=== PATIENT | female | born 1960 | race Caucasian/White ===

== ENCOUNTER 2016-10-30 13:42 | Emergency (ER) | payer OTHER ==
[~2016-10-30 13:42] MED LIST: /ESOM40CA PO; ACET500C OR; CETI10TA OR; CETI5CHW OR; CRES20TA OR; LASI20TA OR; POTA20TA2 OR; VICO5TAB OR; VIT D 4000 PO; phentermine PO
[2016-10-30] MEDS ORDERED: METHOCARBAMOL 1,000 MG/10 ML VIAL (J2800) As Ordered ONE (14:18)
--- NOTE | 2016-10-30 14:44 | EDDOCDS ---
Physician Documentation [facility] Name: Taryn Delgadillo Age: 55 yrs Sex: Female : 1960 Arrival Date: 10/30/2016 Time: 13:42 Bed 5 Private MD: TIMBO LONGORIA Disposition: 10/30/16 14:36 Discharged to Home/Self Care. Impression: Chronic pain syndrome. - Condition is Stable. - Discharge Instructions: Back Pain, Adult, Chronic Pain. - Medication Reconciliation, Local Pharmacy Hours form. - Follow up: TMIBO LONGORIA; When: 2 - 3 days; Reason: Continuance of care. - Problem is an ongoing problem. - Symptoms are unchanged. Historical: - Allergies: Aspirin (Upset stomach); Ibuprofen; Latex; Toradolrectal bleeding; - Home Meds: 1. Nexium 40 mg Oral cpDR 1 cap once daily 2. Zyrtec 10 mg Oral cap daily 3. potassium chloride 20 mEq Oral TbER 1 tab once daily 4. Lasix 20 mg Oral tab 1 tab once daily 5. Crestor 20 mg Oral tab 1 tab once daily 6. Vitamin D Oral daily 7. phentermine 37.5 mg oral cap 1 cap once daily 8. prednisone 20 mg Oral tab once daily 9. carisoprodol 350 mg Oral tab every 6 hours 10. oxycodone-acetaminophen 10-325 mg Oral tab 1 tab every 4 hours 11. ondansetron HCl 4 mg Oral tab every 4 hours as needed 12. Vicodin ES 5-325mg Oral as needed - PMHx: Ulcerative Colitis; Celiac disease; Irritable bowel syndrome; - PSHx: ablasion uterine 2009; fibroids removed uterus 12/2009; Rotator Cuff Repair- Right; Cholecystectomy; ERCP; - Social history: Smoking status: Patient states former smoker of tobacco. No barriers to communication noted, The patient speaks fluent Namibian, Speaks appropriately for age. - Family history: Not pertinent. - : The pt / caregiver states he / she is not on anticoagulants. Home medication list is obtained from the patient. - Exposure Risk Screening:: None identified. 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 4 in. (162.56 cm); Pain 10/10; 14:42 BP 126 / 79; Pulse 68; Resp 16; Temp 98.1(O); Pulse Ox 95% on R/A; Pain 9/10; aa3 13:44 Body Mass Index 30.90 (81.65 kg, 162.56 cm) cmb MDM: 14:17 Diazepam 5 mg IM once ordered. ke 14:17 Robaxin 200 mg IM once ordered. ke Administered Medications: 14:26 Not Given (no ride - cant adminn): Diazepam 5 mg IM once pml 14:26 Drug: Robaxin 200 mg [Robaxin 100 mg/mL injection solution (2 mL)] Route: IM; Site: pml left gluteus; 14:43 Follow up: Response: No Adverse Reaction; No significant change. aa3 Signatures: Raghav Dobson, DAY CARE DIRECTOR Lavonne Gardner RN RN pml Letty Giles RN RN aa3 Rosanna Meyers RN RN kc3 MTDD
--- NOTE | 2016-10-30 14:44 | EDDOCDS ---
Nurse's Notes [facility] Name: Taryn Delgadillo Age: 55 yrs Sex: Female : 1960 Arrival Date: 10/30/2016 Time: 13:42 Bed 5 Private MD: TIMBO LONGORIA Diagnosis: Chronic pain syndrome Presentation: 10/30 13:53 Presenting complaint: Patient states: upper back pain x 1 week. Pt reports is 5th trip kc3 to ER in 1 week with relief of symptoms. Pt reports had MRI done yesterday with herniated discs dx. Pt reports sent here by [facility] and joint soso as unable to get in there. Acute neurological deficits are not present. Mechanism of Injury: No Mechanism of Injury. Adult Sepsis Screening: The patient does not have new or worsening altered mentation. Patient's respiratory rate is less than 22. Systolic blood pressure is greater than 100. Patient has a qSOFA score of 0- Negative Sepsis Screen. Suicide/Homicide risk assessment- the patient denies having any suicidal and/or homicidal ideations and does not present with any other emotional, behavioral or mental health complaints. Status: Patient is not a services mgr or dependent. Transition of care: patient was not received from another setting of care. 13:53 Acuity: DWAIN Level 3 kc3 13:53 Method Of Arrival: Walkin/Carried/Asstd kc3 Triage Assessment: 14:02 General: Appears in no apparent distress, comfortable, Behavior is appropriate for age, kc3 cooperative. Pain: Location: back Pain currently is 10 out of 10 on a pain scale. HIV screening NA for this visit Offered previously. Musculoskeletal: Circulation, motion, and sensation intact. 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 Nexium 40 mg Oral cpDR 1 cap once daily 2. Zyrtec 10 mg Oral cap daily 3. potassium chloride 20 mEq Oral TbER 1 tab once daily 4. Lasix 20 mg Oral tab 1 tab once daily 5. Crestor 20 mg Oral tab 1 tab once daily 6. Vitamin D Oral daily 7. phentermine 37.5 mg oral cap 1 cap once daily 8. prednisone 20 mg Oral tab once daily 9. carisoprodol 350 mg Oral tab every 6 hours 10. oxycodone-acetaminophen 10-325 mg Oral tab 1 tab every 4 hours 11. ondansetron HCl 4 mg Oral tab every 4 hours as needed 12. Vicodin ES 5-325mg Oral as needed - PMHx: Ulcerative Colitis; Celiac disease; Irritable bowel syndrome; - PSHx: ablasion uterine 2009; fibroids removed uterus 12/2009; Rotator Cuff Repair- Right; Cholecystectomy; ERCP; - Social history: Smoking status: Patient states former smoker of tobacco. No barriers to communication noted, The patient speaks fluent Russian, Speaks appropriately for age. - Family history: Not pertinent. - : The pt / caregiver states he / she is not on anticoagulants. Home medication list is obtained from the patient. - Exposure Risk Screening:: None identified. Screenin:26 Screening information is obtained from the patient. Fall risk: No risks identified. pml Assistance ADL's: requires no assistance with activities of daily living. Abuse/DV Screen: The patient / caregiver reports he/she is: not in a situation that causes fear, pain or injury. Nutritional screening: No deficits noted. Advance Directives: Currently, there is no health care proxy. home support is adequate. Assessment: 14:26 General: Appears in no apparent distress, comfortable, Behavior is appropriate for age, pml cooperative. Pain: Location: right scapular area, thoracic area and left arm Pain currently is 9 out of 10 on a pain scale. Neurological: Level of Consciousness is awake, alert, Oriented to person, place, time. Cardiovascular: Capillary refill < 3 seconds. Respiratory: Airway is patent Respiratory effort is even, unlabored. Derm: Skin is pink, warm & dry. Musculoskeletal: Circulation, motion, and sensation intact Capillary refill < 3 seconds Range of motion intact in all extremities. 14:42 General: Appears in no apparent distress, comfortable, Behavior is appropriate for age, aa3 cooperative. Pain: Location: left arm and thoracic area and right scapular area Pain currently is 9 out of 10 on a pain scale. Neurological: Level of Consciousness is awake, alert, Oriented to person, place, time. Respiratory: Airway is patent Respiratory effort is even, unlabored. Vital Signs: 13:44 BP 135 / 89; Pulse 77; Resp 18; Temp 98.2(O); Pulse Ox 98% ; Weight 81.65 kg; Height 5 cmb ft. 4 in. (162.56 cm); Pain 10/10; 14:42 BP 126 / 79; Pulse 68; Resp 16; Temp 98.1(O); Pulse Ox 95% on R/A; Pain 9/10; aa3 13:44 Body Mass Index 30.90 (81.65 kg, 162.56 cm) cmb Vitals: 13:44 Log In Time: October 30, 2016 at 13:42. cmb ED Course: 13:43 Patient visited by Sherley Herman. cmb 13:43 Patient moved to Waiting cmb 13:44 TIMBO LONGORIA is Private Physician. cmb 13:45 Patient moved to Pre RCE cmb 13:56 Triage Initiated kc3 14:04 [facility]. ke 14:04 Patient visited by Raghav Dobson FNP. ke 14:04 Patient visited by Raghav Dobson FNP. ke 14:04 Patient moved to 5 sew 14:26 The patient / caregiver is instructed regarding the plan of care and ED course. Patient pml has correct armband on for positive identification. Bed in low position. Call light in reach. 14:26 No IV's were initiated during this patient's visit. No procedures done that require pml assistance. 14:28 Patient visited by Lavonne Ervin RN. pml 14:36 TIMBO LONGORIA is Referral Physician. ke Administered Medications: 14:26 Not Given (no ride - cant adminn): Diazepam 5 mg IM once pml 14:26 Drug: Robaxin 200 mg [Robaxin 100 mg/mL injection solution (2 mL)] Route: IM; Site: pml left gluteus; 14:43 Follow up: Response: No Adverse Reaction; No significant change. aa3 Order Results: There are currently no results for this order. Outcome: 14:36 Discharge ordered by Provider. ke 14:42 Discharge Assessment: Patient awake and alert. Oriented to person, place and time. aa3 Patient verbalized understanding of disposition instructions. Patient has no functional deficits. patient administered narcotics - no. The following High Risk Discharge criteria are identified: None. Discharged to home ambulatory. Condition: good. Discharge instructions given to patient, Instructed on discharge instructions, follow up and referral plans. Demonstrated understanding of instructions, Pt was receptive of discharge instructions/ teaching. No special radiology studies were completed. Property :Personal belongings accompany Pt. 14:43 Patient left the ED. aa3 Signatures: Raghav Dobson, SPRING TESTER Lavonne GardnerRN RN Sherley Kendrick Sarah sew Asselin, AbbyRN RN aa3 Rosanna MeyersRN RN kc3 MTDD
[2016-11-01] MEDS ORDERED: METAL LOCK LOOP XX ONE (08:39)
--- NOTE | 2016-11-01 15:44 | EDDOCDS ---
Physician Documentation [facility] Name: Taryn Delgadillo Age: 55 yrs Sex: Female : 1960 Arrival Date: 10/30/2016 Time: 13:42 Bed 5 Private MD: TIMBO LONGORIA Disposition: 10/30/16 14:36 Discharged to Home/Self Care. Impression: Chronic pain syndrome. - Condition is Stable. - Discharge Instructions: Back Pain, Adult, Chronic Pain. - Medication Reconciliation, Local Pharmacy Hours form. - Follow up: TIMBO LONGORIA; When: 2 - 3 days; Reason: Continuance of care. - Problem is an ongoing problem. - Symptoms are unchanged. Historical: - Allergies: Aspirin (Upset stomach); Ibuprofen; Latex; Toradolrectal bleeding; - Home Meds: 1. Nexium 40 mg Oral cpDR 1 cap once daily 2. Zyrtec 10 mg Oral cap daily 3. potassium chloride 20 mEq Oral TbER 1 tab once daily 4. Lasix 20 mg Oral tab 1 tab once daily 5. Crestor 20 mg Oral tab 1 tab once daily 6. Vitamin D Oral daily 7. phentermine 37.5 mg oral cap 1 cap once daily 8. prednisone 20 mg Oral tab once daily 9. carisoprodol 350 mg Oral tab every 6 hours 10. oxycodone-acetaminophen 10-325 mg Oral tab 1 tab every 4 hours 11. ondansetron HCl 4 mg Oral tab every 4 hours as needed 12. Vicodin ES 5-325mg Oral as needed - PMHx: Ulcerative Colitis; Celiac disease; Irritable bowel syndrome; - PSHx: ablasion uterine 2009; fibroids removed uterus 12/2009; Rotator Cuff Repair- Right; Cholecystectomy; ERCP; - Social history: Smoking status: Patient states former smoker of tobacco. No barriers to communication noted, The patient speaks fluent Georgian, Speaks appropriately for age. - Family history: Not pertinent. - : The pt / caregiver states he / she is not on anticoagulants. Home medication list is obtained from the patient. - Exposure Risk Screening:: None identified. 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 4 in. (162.56 cm); Pain 10/10; 14:42 BP 126 / 79; Pulse 68; Resp 16; Temp 98.1(O); Pulse Ox 95% on R/A; Pain 9/10; aa3 13:44 Body Mass Index 30.90 (81.65 kg, 162.56 cm) cmb MDM: 14:17 Diazepam 5 mg IM once ordered. ke 14:17 Robaxin 200 mg IM once ordered. ke 11/01 08:57 T-Sheet-- Draft Copy was scanned into [employer] and attached to record. lg Administered Medications: 10/30 14:26 Not Given (no ride - cant adminn): Diazepam 5 mg IM once pml 14:26 Drug: Robaxin 200 mg [Robaxin 100 mg/mL injection solution (2 mL)] Route: IM; Site: pml left gluteus; 14:43 Follow up: Response: No Adverse Reaction; No significant change. aa3 Signatures: Brii Feliz Reg Reg lg Elsner, Karl, UTILITIES GROUND WORKER UTILITIES GROUND WORKER Lavonne Ricketts,RN RN pml Letty Giles RN RN aa3 Rosanna Meyers RN RN kc3 The chart was reviewed and I authenticate all verbal orders and agree with the evaluation and treatment provided.Attachments: 11/01 08:57 T-Sheet-- Draft Copy lg Chart Complete MTDD
--- NOTE | 2016-11-01 15:44 | EDDOCDS ---
Physician Documentation [facility] Name: Taryn Delgadillo Age: 55 yrs Sex: Female : 1960 Arrival Date: 10/30/2016 Time: 13:42 Bed 5 Private MD: TIMBO LONGORIA Disposition: 10/30/16 14:36 Discharged to Home/Self Care. Impression: Chronic pain syndrome. - Condition is Stable. - Discharge Instructions: Back Pain, Adult, Chronic Pain. - Medication Reconciliation, Local Pharmacy Hours form. - Follow up: TIMBO LONGORIA; When: 2 - 3 days; Reason: Continuance of care. - Problem is an ongoing problem. - Symptoms are unchanged. Historical: - Allergies: Aspirin (Upset stomach); Ibuprofen; Latex; Toradolrectal bleeding; - Home Meds: 1. Nexium 40 mg Oral cpDR 1 cap once daily 2. Zyrtec 10 mg Oral cap daily 3. potassium chloride 20 mEq Oral TbER 1 tab once daily 4. Lasix 20 mg Oral tab 1 tab once daily 5. Crestor 20 mg Oral tab 1 tab once daily 6. Vitamin D Oral daily 7. phentermine 37.5 mg oral cap 1 cap once daily 8. prednisone 20 mg Oral tab once daily 9. carisoprodol 350 mg Oral tab every 6 hours 10. oxycodone-acetaminophen 10-325 mg Oral tab 1 tab every 4 hours 11. ondansetron HCl 4 mg Oral tab every 4 hours as needed 12. Vicodin ES 5-325mg Oral as needed - PMHx: Ulcerative Colitis; Celiac disease; Irritable bowel syndrome; - PSHx: ablasion uterine 2009; fibroids removed uterus 12/2009; Rotator Cuff Repair- Right; Cholecystectomy; ERCP; - Social history: Smoking status: Patient states former smoker of tobacco. No barriers to communication noted, The patient speaks fluent Danish, Speaks appropriately for age. - Family history: Not pertinent. - : The pt / caregiver states he / she is not on anticoagulants. Home medication list is obtained from the patient. - Exposure Risk Screening:: None identified. 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 4 in. (162.56 cm); Pain 10/10; 14:42 BP 126 / 79; Pulse 68; Resp 16; Temp 98.1(O); Pulse Ox 95% on R/A; Pain 9/10; aa3 13:44 Body Mass Index 30.90 (81.65 kg, 162.56 cm) cmb MDM: 14:17 Diazepam 5 mg IM once ordered. ke 14:17 Robaxin 200 mg IM once ordered. ke 11/01 08:57 T-Sheet-- Draft Copy was scanned into [email or web address] and attached to record. lg Administered Medications: 10/30 14:26 Not Given (no ride - cant adminn): Diazepam 5 mg IM once pml 14:26 Drug: Robaxin 200 mg [Robaxin 100 mg/mL injection solution (2 mL)] Route: IM; Site: pml left gluteus; 14:43 Follow up: Response: No Adverse Reaction; No significant change. aa3 Signatures: Brii Feliz Reg Reg lg Elsner, Karl, CERTIFIED NURSE OPERATING ROOM CERTIFIED NURSE OPERATING ROOM Lavonne Ricketts,RN RN pml Letty Giles RN RN aa3 Rosanna Meyers RN RN kc3 The chart was reviewed and I authenticate all verbal orders and agree with the evaluation and treatment provided.Attachments: 11/01 08:57 T-Sheet-- Draft Copy lg Chart Complete MTDD
--- NOTE | 2016-11-01 15:45 | EDDOCDS ---
Nurse's Notes [facility] Name: Taryn Delgadillo Age: 55 yrs Sex: Female : 1960 Arrival Date: 10/30/2016 Time: 13:42 Bed 5 Private MD: TIMBO LONGORIA Diagnosis: Chronic pain syndrome Presentation: 10/30 13:53 Presenting complaint: Patient states: upper back pain x 1 week. Pt reports is 5th trip kc3 to ER in 1 week with relief of symptoms. Pt reports had MRI done yesterday with herniated discs dx. Pt reports sent here by [facility] and joint robinson as unable to get in there. Acute neurological deficits are not present. Mechanism of Injury: No Mechanism of Injury. Adult Sepsis Screening: The patient does not have new or worsening altered mentation. Patient's respiratory rate is less than 22. Systolic blood pressure is greater than 100. Patient has a qSOFA score of 0- Negative Sepsis Screen. Suicide/Homicide risk assessment- the patient denies having any suicidal and/or homicidal ideations and does not present with any other emotional, behavioral or mental health complaints. 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 Transition of care: patient was not received from another setting of care. 13:53 Acuity: DWAIN Level 3 kc3 13:53 Method Of Arrival: Walkin/Carried/Asstd kc3 Triage Assessment: 14:02 General: Appears in no apparent distress, comfortable, Behavior is appropriate for age, kc3 cooperative. Pain: Location: back Pain currently is 10 out of 10 on a pain scale. HIV screening NA for this visit Offered previously. Musculoskeletal: Circulation, motion, and sensation intact. AT RISK SPECIALIST: 14:02 LMP N/A - Uterine ablation kc3 Historical: - Allergies: Aspirin (Upset stomach); Ibuprofen; Latex; Toradolrectal bleeding; - Home Meds: 1. Nexium 40 mg Oral cpDR 1 cap once daily 2. Zyrtec 10 mg Oral cap daily 3. potassium chloride 20 mEq Oral TbER 1 tab once daily 4. Lasix 20 mg Oral tab 1 tab once daily 5. Crestor 20 mg Oral tab 1 tab once daily 6. Vitamin D Oral daily 7. phentermine 37.5 mg oral cap 1 cap once daily 8. prednisone 20 mg Oral tab once daily 9. carisoprodol 350 mg Oral tab every 6 hours 10. oxycodone-acetaminophen 10-325 mg Oral tab 1 tab every 4 hours 11. ondansetron HCl 4 mg Oral tab every 4 hours as needed 12. Vicodin ES 5-325mg Oral as needed - PMHx: Ulcerative Colitis; Celiac disease; Irritable bowel syndrome; - PSHx: ablasion uterine 2009; fibroids removed uterus 12/2009; Rotator Cuff Repair- Right; Cholecystectomy; ERCP; - Social history: Smoking status: Patient states former smoker of tobacco. No barriers to communication noted, The patient speaks fluent Slovak, Speaks appropriately for age. - Family history: Not pertinent. - : The pt / caregiver states he / she is not on anticoagulants. Home medication list is obtained from the patient. - Exposure Risk Screening:: None identified. Screenin:26 Screening information is obtained from the patient. Fall risk: No risks identified. pml Assistance ADL's: requires no assistance with activities of daily living. Abuse/DV Screen: The patient / caregiver reports he/she is: not in a situation that causes fear, pain or injury. Nutritional screening: No deficits noted. Advance Directives: Currently, there is no health care proxy. home support is adequate. Assessment: 14:26 General: Appears in no apparent distress, comfortable, Behavior is appropriate for age, pml cooperative. Pain: Location: right scapular area, thoracic area and left arm Pain currently is 9 out of 10 on a pain scale. Neurological: Level of Consciousness is awake, alert, Oriented to person, place, time. Cardiovascular: Capillary refill < 3 seconds. Respiratory: Airway is patent Respiratory effort is even, unlabored. Derm: Skin is pink, warm & dry. Musculoskeletal: Circulation, motion, and sensation intact Capillary refill < 3 seconds Range of motion intact in all extremities. 14:42 General: Appears in no apparent distress, comfortable, Behavior is appropriate for age, aa3 cooperative. Pain: Location: left arm and thoracic area and right scapular area Pain currently is 9 out of 10 on a pain scale. Neurological: Level of Consciousness is awake, alert, Oriented to person, place, time. Respiratory: Airway is patent Respiratory effort is even, unlabored. Vital Signs: 13:44 BP 135 / 89; Pulse 77; Resp 18; Temp 98.2(O); Pulse Ox 98% ; Weight 81.65 kg; Height 5 cmb ft. 4 in. (162.56 cm); Pain 10/10; 14:42 BP 126 / 79; Pulse 68; Resp 16; Temp 98.1(O); Pulse Ox 95% on R/A; Pain 9/10; aa3 13:44 Body Mass Index 30.90 (81.65 kg, 162.56 cm) cmb Vitals: 13:44 Log In Time: October 30, 2016 at 13:42. cmb ED Course: 13:43 Patient visited by Sherley Herman. cmb 13:43 Patient moved to Waiting cmb 13:44 TIMBO LONGORIA is Private Physician. cmb 13:45 Patient moved to Pre RCE cmb 13:56 Triage Initiated kc3 14:04 [facility]. ke 14:04 Patient visited by Raghav Dobson FNP. ke 14:04 Patient visited by Raghav Dobson FNP. ke 14:04 Patient moved to 5 sew 14:26 The patient / caregiver is instructed regarding the plan of care and ED course. Patient pml has correct armband on for positive identification. Bed in low position. Call light in reach. 14:26 No IV's were initiated during this patient's visit. No procedures done that require pml assistance. 14:28 Patient visited by Lavonne Ervin RN. pml 14:36 TIMBO LONGORIA is Referral Physician. ke 11/01 08:57 T-Sheet-- Draft Copy was scanned into [employer] and attached to record. lg Administered Medications: 10/30 14:26 Not Given (no ride - cant adminn): Diazepam 5 mg IM once pml 14:26 Drug: Robaxin 200 mg [Robaxin 100 mg/mL injection solution (2 mL)] Route: IM; Site: pml left gluteus; 14:43 Follow up: Response: No Adverse Reaction; No significant change. aa3 Order Results: There are currently no results for this order. Outcome: 14:36 Discharge ordered by Provider. ke 14:42 Discharge Assessment: Patient awake and alert. Oriented to person, place and time. aa3 Patient verbalized understanding of disposition instructions. Patient has no functional deficits. patient administered narcotics - no. The following High Risk Discharge criteria are identified: None. Discharged to home ambulatory. Condition: good. Discharge instructions given to patient, Instructed on discharge instructions, follow up and referral plans. Demonstrated understanding of instructions, Pt was receptive of discharge instructions/ teaching. No special radiology studies were completed. Property :Personal belongings accompany Pt. 14:43 Patient left the ED. aa3 Signatures: Brii Feliz, Reg Reg lg Raghav Dobson, ANIMAL CARE SUPERVISOR ANIMAL CARE SUPERVISORLavonne Espitia,RN RN Sherley Kendrick Sarah sew Asselin, AbbyRN RN aa3 Rosanna MeyersRN RN kc3 Chart Complete MTDD
== END 2016-10-30 14:43 | disposition home or self-care (01) ==
LOC: M ED 13:42
DX: G89.29 Other chronic pain (principal); M54.9 Dorsalgia, unspecified; K90.0 Celiac disease; K58.9 Irritable bowel syndrome, unspecified; Z87.891 Personal history of nicotine dependence; Z79.899 Other long term (current) drug therapy; Z88.6 Allergy status to analgesic agent; Z91.040 Latex allergy status
CPT/HCPCS: 96372; 99283; J2800; J3360

== ENCOUNTER → 2016-11-05 | Outpatient (CLI) | payer MEDICAID, OTHER ==
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
== END ==
LOC: M PAIN 13:00
PROVIDERS: ATTEND Anesthesiology
DX: G89.29 Other chronic pain (principal); M50.123 Cervical disc disorder at C6-C7 level with radiculopathy; M50.13 Cervical disc disorder with radiculopathy, cervicothoracic region; M51.14 Intervertebral disc disorders with radiculopathy, thoracic region; I10 Essential (primary) hypertension; E11.9 Type 2 diabetes mellitus without complications; G47.30 Sleep apnea, unspecified; K21.9 Gastro-esophageal reflux disease without esophagitis; K90.0 Celiac disease; K52.9 Noninfective gastroenteritis and colitis, unspecified; K75.81 Nonalcoholic steatohepatitis (NASH); G43.909 Migraine, unspecified, not intractable, without status migrainosus; E78.00 Pure hypercholesterolemia, unspecified; Z88.6 Allergy status to analgesic agent; Z91.040 Latex allergy status; Z88.8 Allergy status to other drugs, medicaments and biological substances; L50.2 Urticaria due to cold and heat; Z79.891 Long term (current) use of opiate analgesic; Z79.899 Other long term (current) drug therapy; Z87.820 Personal history of traumatic brain injury

== ENCOUNTER → 2016-11-08 | Outpatient (CLI) | payer MEDICAID, OTHER ==
[~2016-11-08] MED LIST changes: +ISOVUE-M 300 61% 15ML VIAL (Q9967) As Ordered ONE; +LIDOCAINE 1% SDV INJ 30 ML VIAL As Ordered ONE; +diazePAM 5 MG TAB As Ordered ONE; +methylPREDNISolone SUSP 40 MG/ML (DEPO-medrol) VIAL (J1030) As Ordered ONE; +oxyCODONE 5MG TAB As Ordered ONE
--- NOTE | 2016-11-08 16:50 | REP ---
Partial cervical spine series: Two views. History: Cervical epidural steroid injection for pain. 8 seconds of fluoroscopy time is reported. Findings: A sequence of two fluoroscopically obtained last image hold spot radiographs of the cervicothoracic junction document needle position and contrast injection associated with cervical epidural injection procedure. Signed by Kirill Jones MD 11/08/2016 07:45 P
--- NOTE | 2016-11-16 00:32 | ECWPNPC ---
PATIENT NAME: PADILLA NGUYEN : 1960 GENDER: FEMALE VISIT DATE: 11/08/2016 DISCHARGE DATE: 11/08/16 1552 VISIT LOCKED DATE TIME: PHYSICIAN: XIOMARA ORDONEZ RESOURCE: XIOMARA ORDONEZ REASON FOR APPOINTMENT 1. PREETI HISTORY OF PRESENT ILLNESS HISTORY OF PRESENT ILLNESS: PAIN THE PATIENT DESCRIBES THE PAIN... FALL RISK SCREENING: SCREENING :NO FALLS IN THE PAST YEAR CURRENT MEDICATIONS TAKING NEXIUM 40 MG CAPSULE DELAYED RELEASE 1 CAPSULE ORALLY ONCE A DAY, NOTES: 11/08/16 1000 TAKING LASIX 20 MG TABLET 1 TABLET ORALLY ONCE A DAY, NOTES: 11/08/16 1000 TAKING ZYRTEC ALLERGY 10 MG TABLET 1 TABLET ORALLY ONCE A DAY, NOTES: 11/08/16 1000 TAKING POTASSIUM CHLORIDE TYE ER 20 MEQ TABLET EXTENDED RELEASE 1 TABLET WITH FOOD ORALLY ONCE A DAY, NOTES: 11/04/16 TAKING VITAMIN D 2000 UNIT TABLET 1 TABLET ORALLY ONCE A DAY, NOTES: 11/05/16 TAKING CRESTOR 20 MG TABLET 1 TABLET ORALLY ONCE A DAY, NOTES: 1 WEEK TAKING PHENTERMINE HCL 37.5 MG TABLET 1 TABLET ORALLY ONCE A DAY, NOTES: 11/08/16 1000 TAKING OXYCODONE-ACETAMINOPHEN 10-325 MG TABLET 1 TABLET NEEDED ORALLY EVERY 4 HRS NEEDED, NOTES: 11/08/16 1130 TAKING SOMA 350 MG TABLET 1 TABLET NEEDED ORALLY FOUR TIMES A DAY, NOTES: 11/07/16 2100 NOT-TAKING VICODIN 5-300 MG TABLET 1 TABLET NEEDED ORALLY EVERY 4 HRS NEEDED WHEN NOT ON OXYCODONE MEDICATION LIST REVIEWED AND RECONCILED WITH THE PATIENT PAST MEDICAL HISTORY HYPERTENSION DIABETES HEAD INJURY 35 YRS AGO LIGIA NO CPAP GERD CELIAC/COLITIS MIGRAINES HIGH CHOLESTEROL BETTENCOURT DISEASE (FATTY LIVER) BONE ON BONE IN BOTH THUMBS ALLERGIES ASPIRIN: SEVERE STOMACH: ALLERGY IBUPROFEN: SEVERE STOMACH: ALLERGY LATEX (FOR ALLERGY USE ONLY): HIVES: ALLERGY KETOROLAC TROMETHAMINE: RECTYAL BLEEDING: CONTRAINDICATION COLD: HIVES, RED, SWELLING: ALLERGY SURGICAL HISTORY LEFT KNEE SURGERY 1982 RIGHT KNEE SURGERY 2002 GALLBLADDER ERCP D&C AND TUBALIGATION UTERINE ABLATION RIGHT SHOULDER- ROTATOR CUFF X2 SOCIAL HISTORY GENERAL: TOBACCO USE ARE YOU A:NONSMOKER LEARNING BARRIERS / SPECIAL NEEDS ORIENTED TO PLAN OF CARE: PATIENT, PAIN MANAGEMENT PATIENT, ORIENTED TO PLAN OF CARE: PATIENT, PAIN MANAGEMENT PATIENT. NEW PATIENT PAIN DIARY TODAY'S VISITNOTES FROM 0-10, WHAT LEVEL IS YOUR PAIN TODAY?0 PAIN CLINIC PFS, CLERGY, PUBLIC HEALTH REFERRALS PFS REFERRAL NEEDED?NO CLERGY REFERRAL NEEDED?NO PUBLIC HEALTH REFERRAL NEEDED?NO WAS THE PROVIDER NOTIFIED OF ANY PERTINENT INFO?NO PFS REFERRAL NEEDED?NO CLERGY REFERRAL NEEDED?NO PUBLIC HEALTH REFERRAL NEEDED?NO WAS THE PROVIDER NOTIFIED OF ANY PERTINENT INFO?NO REVIEW OF SYSTEMS CONSTITUTIONAL: ANY CHANGE IN YOUR MEDICAL CONDITION? NO . CHILLS NO . FEVER NO . INFECTION: DO YOU HAVE NEW INFECTIONS? NO . DO YOU HAVE HISTORY OF MRSA? NO . MUSCULOSKELETAL: ANY NEW PATTERNS OF PAIN OR NUMBNESS? NO . GASTROENTEROLOGY: ANY NEW CHANGE IN BOWEL CONTROL? NO . GENITOURINARY: ANY NEW CHANGE IN BLADDER CONTROL? NO . IS THERE A CHANCE YOU COULD BE ? NO . HEMATOLOGY/LYMPH: DO YOU TAKE ANY BLOOD THINNERS? (FOR EXAMPLE- COUMADIN, PLAVIX, AGGRENOX, PLATEL, PRADAXA, OR XARELTO) NO . WHEN WAS YOUR LAST DOSE? DATE: TIME: . NEUROLOGY: HAVE YOU FALLEN IN THE PAST 6 MONTHS? NO . ANY NEW EXTREMITY NUMBNESS OR WEAKNESS? NO . CARDIOLOGY: DO YOU HAVE A PACEMAKER OR DEFIBRILLATOR? NO . RESPIRATORY: HAVE YOU BEEN SICK IN THE PAST WEEK? NO . FEVER NO . FLU LIKE SYMPTOMS? NO . COUGH NO . INTEGUMENTARY: DO YOU HAVE ANY RASHES OR OPEN SORES? NO . ALLERGIC/IMMUNO: ARE YOU ALLERGIC TO SHELLFISH OR IV DYE? NO . ANY NEW ALLERGIES? NO . PSYCHIATRIC: DO YOU HAVE THOUGHTS OF HURTING YOURSELF OR SOMEONE ELSE? NO . ARE YOU ABUSED, NEGLECTED, OR IN AN UNSAFE ENVIRONMENT? NO . ENDOCRINOLOGY: ARE YOU DIABETIC? NO . OTHER: DO YOU NEED ANY PRESCRIPTIONS? YES . IF YES, PLEASE LIST: OXYCODONE 15 MG . ANY NEW PROBLEMS WITH YOUR MEDICATIONS? NO . WHEN DID YOU LAST EAT? 0300 . WHEN DID YOU LAST DRINK? 1000 . WHAT DID YOU LAST DRINK? WATER . NAME OF PERSON DRIVING YOU HOME? GENNA MASSEY . DO YOU HAVE ANY OTHER QUESTIONS OR CONCERNS NO . REVIEWED BY: PROVIDER: . VITAL SIGNS WT 185 LBS, HT 63", BMI 32.77 INDEX, BP 134/84 MM HG, HR 80 /MIN, RR 16 /MIN, TEMP 96.6 F, OXYGEN SAT % 96, NA INITIALS TL 1329, REVIEWED BY: LS. ASSESSMENTS CERVICAL DISC DISORDER AT C6-C7 LEVEL WITH RADICULOPATHY - M50.123 (PRIMARY) PROCEDURES PN CERVICAL EPIDURAL PRE PROCEDURE DIAGNOSIS CERVICAL RADICULOPATHY CERVICAL SPINAL STENOSIS POST PROCEDURE DIAGNOSIS CERVICAL RADICULOPATHY CERVICAL SPINAL STENOSIS PROCEDURE CERVICAL EPIDURAL STEROID INJECTION UNDER FLUOROSCOPIC GUIDANCE SURGEON DR. XIOMARA ORDONEZ SUPERVISOR SEWING DEPARTMENT NONE ANESTHESIA LOCAL PRE PROCEDURE NOTE THE PATIENT HAS A HISTORY OF CHRONIC CERVICAL PAIN. I EVALUATE THE PATIENT AND REVIEWED THE CHART. I WENT OVER THE RISKS, ALTERNATIVES, AND BENEFITS ASSOCIATED WITH THIS PROCEDURE. THE PATIENT WOULD LIKE TO PROCEED AND GIVE CONSENT TO PERFORMED THE PROCEDURE. THE PATIENT DENIES UNEXPLAINABLE WEIGHT LOSS, FEVER, CHILLS, OR NEW CHANGES IN URINARY OR BOWEL CONTROL DESCRIPTION OF PROCEDURE THE PATIENT WAS BROUGHT TO THE PROCEDURE ROOM AND PLACED IN THE PRONE POSITION. THE CERVICOTHORACIC AREA WAS CLEANED WITH BETADINE SOLUTION AND DRAPED ASEPTICALLY. THE PROCEDURE WAS DONE UNDER STERILE CONDITIONS. I CHECKED LATERALITY AND THE LEVEL WHERE THE PROCEDURE WAS GOING TO BE PERFORMED WITH THE PATIENT AND THE SUPPORTING STAFF AT THE MOMENT OF THE TIME OUT IN THE PROCEDURE ROOM. UNDER FLUOROSCOPIC GUIDANCE, THE TARGET WAS SELECTED AT THE INTERLAMINAR LEVEL OF C7-T1. LIDOCAINE WAS USED TO NUMB THE SKIN AND THE SUBCUTANEOUS TISSUE BELOW IT. EPIDURAL TUOHY NEEDLE 17-GAUGE WAS ADVANCED UNDER FLUOROSCOPIC GUIDANCE AND FOLLOWING PATIENT FEEDBACK UNTIL THE EPIDURAL SPACE WAS REACHED 6 CM DEEP INTO THE SKIN BY THE LOSS OF RESISTANCE TECHNIQUE. ISOVUE M DYE 30%, 0.25 ML, WAS INJECTED SHOWING ADEQUATE SPREAD OF THE DYE. THEN, A SOLUTION OF 3 ML OF NORMAL SALINE WITH DEPO-MEDROL 60 MG WAS INJECTED SLOWLY FOLLOWING PATIENT FEEDBACK. THERE WAS NO EVIDENCE OF BLOOD, PARESTHESIA OR CEREBROSPINAL FLUID DURING THE PROCEDURE. THE PATIENT WAS SENT TO THE RECOVERY ROOM. THE PATIENT WAS MOVING THE EXTREMITIES AND DOING WELL. THERE WAS NO COMPLICATION DURING THE PROCEDURE. FLUOROSCOPY TIME WAS 8 SECONDS POST PROCEDURE NOTE THE PATIENT WILL BE SEEN IN A FOLLOW UP IN THE NEXT FEW WEEKS. INSTRUCTIONS WERE GIVEN, QUESTIONS WERE ANSWERED, AND THE PATIENT EXPRESSED UNDERSTANDING AND AGREES WITH THE PLAN. IMALACHI, DOCUMENTED THE ABOVE INFORMATION ACTING A SCRIBE FOR DR. ORDONEZ. I, DR. ORDONEZ, HAVE REVIEWED THE ABOVE DOCUMENT, SCRIBED BY MALACHI VERNON, AND I VERIFY THAT IT IS ACCURATE DIAGNOSTIC IMAGING [facility] FLUORO GUIDE SPINE INJECTION (PAIN)[id number] PROCEDURE CODES 42626 CERVICAL/THORACIC W/ IMAGING 6045F RADXPS IN END [id number] PXD DISPOSITION & COMMUNICATION FOLLOW UP 3 WEEKS ELECTRONICALLY SIGNED BY XIOMARA ORDONEZ MD ON 11/14/2016 AT 11:55 AM EDT DISCLAIMER : THIS IS A VISIT SUMMARY EXTRACTED FROM THE [email or web address] CHART. IT IS NOT A COPY OF THE [email or web address] PROGRESS NOTE. MTDD
== END ==
LOC: M PAIN 13:00
PROVIDERS: ATTEND Anesthesiology
DX: G89.29 Other chronic pain (principal); M50.123 Cervical disc disorder at C6-C7 level with radiculopathy; I10 Essential (primary) hypertension; E11.9 Type 2 diabetes mellitus without complications; K21.9 Gastro-esophageal reflux disease without esophagitis; K90.0 Celiac disease; K52.9 Noninfective gastroenteritis and colitis, unspecified; K75.81 Nonalcoholic steatohepatitis (NASH); G43.909 Migraine, unspecified, not intractable, without status migrainosus; E78.00 Pure hypercholesterolemia, unspecified; G47.30 Sleep apnea, unspecified; Z88.6 Allergy status to analgesic agent; Z91.040 Latex allergy status; Z88.8 Allergy status to other drugs, medicaments and biological substances; L50.2 Urticaria due to cold and heat; Z79.891 Long term (current) use of opiate analgesic; Z79.899 Other long term (current) drug therapy; Z87.820 Personal history of traumatic brain injury
CPT/HCPCS: 62321; J1030; Q9967

== ENCOUNTER → 2016-11-30 | Outpatient (CLI) | payer MEDICAID, OTHER ==
[~2016-11-30] MED LIST changes: -ISOVUE-M 300 61% 15ML VIAL (Q9967) As Ordered ONE; -LIDOCAINE 1% SDV INJ 30 ML VIAL As Ordered ONE; -diazePAM 5 MG TAB As Ordered ONE; -methylPREDNISolone SUSP 40 MG/ML (DEPO-medrol) VIAL (J1030) As Ordered ONE; -oxyCODONE 5MG TAB As Ordered ONE
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
== END ==
LOC: M PAIN 13:20
PROVIDERS: ATTEND Anesthesiology
DX: Z09 Encounter for follow-up examination after completed treatment for conditions other than malignant neoplasm (principal); G89.29 Other chronic pain; M54.2 Cervicalgia; M43.12 Spondylolisthesis, cervical region; M79.1 Myalgia; I10 Essential (primary) hypertension; G47.33 Obstructive sleep apnea (adult) (pediatric); K21.9 Gastro-esophageal reflux disease without esophagitis; G43.909 Migraine, unspecified, not intractable, without status migrainosus; E78.00 Pure hypercholesterolemia, unspecified; K76.0 Fatty (change of) liver, not elsewhere classified; Z79.891 Long term (current) use of opiate analgesic; Z79.899 Other long term (current) drug therapy; Z88.6 Allergy status to analgesic agent; Z91.040 Latex allergy status; Z88.8 Allergy status to other drugs, medicaments and biological substances

== ENCOUNTER → 2016-12-28 | Outpatient (REF) ==
--- NOTE | 2016-12-28 11:37 | REP ---
PARTIAL LUMBAR SPINE, THREE VIEWS: HISTORY: Degenerative disc disease. There is no acute fracture or subluxation. The L3-4 through L5-S1 intervertebral discs are decreased in height. Vacuum phenomenon is present at the L4-5 level. These findings are consistent with disc degeneration. Osteophytes are present on L4 and 5. IMPRESSION: Degenerative change as described above. Signed by Diaz Isabel MD 12/28/2016 11:40 A
== END ==
LOC: M SMT 10:52
PROVIDERS: ATTEND Internal Medicine
DX: Z02.71 Encounter for disability determination (principal)

== ENCOUNTER → 2017-01-05 | Outpatient (CLI) | payer OTHER, MEDICAID ==
[~2017-01-05] MED LIST changes: +BUPIVACAINE HCL 0.25% 10 ML VIAL As Ordered ONE; +BUPIVACAINE HCL 0.25% 30 ML VIAL As Ordered ONE; +TRIAMCINOLONE ACETONIDE SUSP 40 MG/ML VIAL (J3301) As Ordered ONE; +ePHEDrine SULFATE 25 MG/5 ML(5MG/ML) SYRINGE As Ordered ONE
--- NOTE | 2017-01-09 23:36 | ECWPNPC ---
PATIENT NAME: PADILLA NGUYEN : 1960 GENDER: FEMALE VISIT DATE: 01/05/2017 DISCHARGE DATE: 01/05/17949 VISIT LOCKED DATE TIME: PHYSICIAN: XIOMARA ORDONEZ RESOURCE: XIOMARA ORDONEZ REASON FOR APPOINTMENT 1. TPI HISTORY OF PRESENT ILLNESS HISTORY OF PRESENT ILLNESS: PAIN THE PATIENT DESCRIBES THE PAIN... FALL RISK SCREENING: SCREENING :NO FALLS IN THE PAST YEAR CURRENT MEDICATIONS TAKING NEXIUM 40 MG CAPSULE DELAYED RELEASE 1 CAPSULE ORALLY ONCE A DAY, NOTES: 01-05-17699 TAKING LASIX 20 MG TABLET 1 TABLET ORALLY ONCE A DAY, NOTES: 01-05-17699 TAKING ZYRTEC ALLERGY 10 MG TABLET 1 TABLET ORALLY ONCE A DAY, NOTES: 01-05-17699 TAKING POTASSIUM CHLORIDE TYE ER 20 MEQ TABLET EXTENDED RELEASE 1 TABLET WITH FOOD ORALLY ONCE A DAY, NOTES: NONE RECENT TAKING VITAMIN D 2000 UNIT TABLET 1 TABLET ORALLY ONCE A DAY, NOTES: NONE TAKING CRESTOR 20 MG TABLET 1 TABLET ORALLY ONCE A DAY, NOTES: 01-05-17699 TAKING PHENTERMINE HCL 37.5 MG TABLET 1 TABLET ORALLY ONCE A DAY, NOTES: NONE NOT-TAKING VICODIN 5-300 MG TABLET 1 TABLET NEEDED ORALLY EVERY 4 HRS NEEDED WHEN NOT ON OXYCODONE DISCONTINUED OXYCODONE-ACETAMINOPHEN 10-325 MG TABLET 1 TABLET NEEDED ORALLY EVERY 4 HRS NEEDED DISCONTINUED SOMA 350 MG TABLET 1 TABLET NEEDED ORALLY DAILY MEDICATION LIST REVIEWED AND RECONCILED WITH THE PATIENT PAST MEDICAL HISTORY HYPERTENSION DIABETES HEAD INJURY 35 YRS AGO LIGIA NO CPAP GERD CELIAC/COLITIS MIGRAINES HIGH CHOLESTEROL BETTENCOURT DISEASE (FATTY LIVER) BONE ON BONE IN BOTH THUMBS ALLERGIES ASPIRIN: SEVERE STOMACH: ALLERGY IBUPROFEN: SEVERE STOMACH: ALLERGY LATEX (FOR ALLERGY USE ONLY): HIVES: ALLERGY KETOROLAC TROMETHAMINE: RECTYAL BLEEDING: CONTRAINDICATION COLD: HIVES, RED, SWELLING: ALLERGY REVIEW OF SYSTEMS CONSTITUTIONAL: ANY CHANGE IN YOUR MEDICAL CONDITION? NO . CHILLS NO . FEVER NO . INFECTION: DO YOU HAVE NEW INFECTIONS? NO . DO YOU HAVE HISTORY OF MRSA? NO . MUSCULOSKELETAL: ANY NEW PATTERNS OF PAIN OR NUMBNESS? YES, RIGHT SIDE OF NECK GOING DOWN RIGHT ARM . GASTROENTEROLOGY: ANY NEW CHANGE IN BOWEL CONTROL? NO . GENITOURINARY: ANY NEW CHANGE IN BLADDER CONTROL? NO . IS THERE A CHANCE YOU COULD BE ? NO . HEMATOLOGY/LYMPH: DO YOU TAKE ANY BLOOD THINNERS? (FOR EXAMPLE- COUMADIN, PLAVIX, AGGRENOX, PLATEL, PRADAXA, OR XARELTO) NO . WHEN WAS YOUR LAST DOSE? DATE: TIME: . NEUROLOGY: HAVE YOU FALLEN IN THE PAST 6 MONTHS? NO . ANY NEW EXTREMITY NUMBNESS OR WEAKNESS? NO . CARDIOLOGY: DO YOU HAVE A PACEMAKER OR DEFIBRILLATOR? NO . RESPIRATORY: HAVE YOU BEEN SICK IN THE PAST WEEK? NO . FEVER NO . FLU LIKE SYMPTOMS? NO . COUGH NO . INTEGUMENTARY: DO YOU HAVE ANY RASHES OR OPEN SORES? NO . ALLERGIC/IMMUNO: ARE YOU ALLERGIC TO SHELLFISH OR IV DYE? NO . ANY NEW ALLERGIES? NO . PSYCHIATRIC: DO YOU HAVE THOUGHTS OF HURTING YOURSELF OR SOMEONE ELSE? NO . ARE YOU ABUSED, NEGLECTED, OR IN AN UNSAFE ENVIRONMENT? NO . ENDOCRINOLOGY: ARE YOU DIABETIC? NO . OTHER: DO YOU NEED ANY PRESCRIPTIONS? NO . IF YES, PLEASE LIST: ____ . ANY NEW PROBLEMS WITH YOUR MEDICATIONS? NO . WHEN DID YOU LAST EAT? 01-04-17 7PM . WHEN DID YOU LAST DRINK? 01-05-17 0700 . WHAT DID YOU LAST DRINK? WATER . NAME OF PERSON DRIVING YOU HOME? GRACE LOZANO . DO YOU HAVE ANY OTHER QUESTIONS OR CONCERNS NO . REVIEWED BY: PROVIDER: . VITAL SIGNS WT 182 LBS, HT 63", BMI 32.24 INDEX, BP 129/86 MM HG, HR 82 /MIN, RR 16 /MIN, TEMP 97.6 F, OXYGEN SAT % 95%, NA INITIALS SC 08:51, REVIEWED BY: CM. ASSESSMENTS MYALGIA - M79.1 (PRIMARY) PROCEDURES PN TRIGGER POINT INJECTION WITH STEROIDS PRE PROCEDURE DIAGNOSIS 1. MYALGIA 2. PAIN AT BILATERAL NECK AREA, BILATERAL SHOULDER AREA, AND BILATERAL THORACIC AREA POST PROCEDURE DIAGNOSIS 1. MYALGIA 2. PAIN AT BILATERAL NECK AREA, BILATERAL SHOULDER AREA, AND BILATERAL THORACIC AREA PROCEDURE TRIGGER POINT INJECTION AT BILATERAL NECK AREA, BILATERAL SHOULDER AREA, AND BILATERAL THORACIC AREA SURGEON DR. XIOMARA ORDONEZ MANAGER BIOSTATISTICS NONE ANESTHESIA LOCAL PRE PROCEDURE NOTE THE PATIENT HAS A HISTORY OF CHRONIC PAIN AT THE RIGHT AND LEFT NECK AREA, RIGHT AND LEFT SHOULDER AREA, AND RIGHT AND LEFT THORACIC AREA. I EVALUATE THE PATIENT AND REVIEWED THE CHART. THERE IS EVIDENCE OF BANDS OF TISSUE WITH RESTRICTION OF MOVEMENT AND PRESENCE OF TRIGGER POINT AT THE AFFECTED AREA. I WENT OVER THE RISKS, ALTERNATIVES, AND BENEFITS ASSOCIATED WITH THIS PROCEDURE. THE PATIENT WOULD LIKE TO PROCEED AND GIVE CONSENT TO PERFORMED THE PROCEDURE. THE PATIENT DENIES UNEXPLAINABLE WEIGHT LOSS, FEVER, CHILLS, OR NEW CHANGES IN URINARY OR BOWEL CONTROL DESCRIPTION OF PROCEDURE THE PATIENT WAS BROUGHT TO THE PROCEDURE ROOM AND PLACED IN THE SITTING POSITION. THE AREA WAS CLEANED WITH ALCOHOL. THE PROCEDURE WAS DONE USING ASEPTIC STERILE TECHNIQUE. I CHECKED LATERALITY AND THE LEVEL WHERE THE PROCEDURE WAS GOING TO BE PERFORMED WITH THE PATIENT AND THE SUPPORTING STAFF AT THE MOMENT OF THE TIME OUT IN THE PROCEDURE ROOM. USING A 25-GAUGE NEEDLE, TRIGGER POINTS WERE INJECTED AT THE RIGHT AND LEFT NECK AREA, RIGHT AND LEFT SHOULDER AREA AND RIGHT AND LEFT THORACIC AREA WITH A TOTAL OF 40 ML OF BUPIVACAINE 0.25% AND KENALOG 40 MG. THERE WAS NO EVIDENCE OF BLOOD, PARESTHESIA OR CEREBROSPINAL FLUID DURING THE PROCEDURE. THE PATIENT WAS SENT TO THE RECOVERY ROOM. THE PATIENT WAS MOVING THE EXTREMITIES AND DOING WELL. THERE WAS NO COMPLICATION DURING THE PROCEDURE POST PROCEDURE NOTE THE PATIENT WILL BE SEEN IN A FOLLOW UP IN THE NEXT FEW WEEKS. INSTRUCTIONS WERE GIVEN, QUESTIONS WERE ANSWERED, AND THE PATIENT EXPRESSED UNDERSTANDING AND AGREES WITH THE PLAN. I, MALACHI VERNON, DOCUMENTED THE ABOVE INFORMATION ACTING A SCRIBE FOR DR. ORDONEZ. I HAVE REVIEWED THE ABOVE DOCUMENT, WRITTEN BY MALACHI CORTEZ AND I VERIFY THAT IT IS ACCURATE PROCEDURE CODES 65606 INJECT TRIGGER POINTS 3/> DISPOSITION & COMMUNICATION FOLLOW UP 3 WEEKS ELECTRONICALLY SIGNED BY XIOMARA ORDONEZ MD ON 01/09/2017 AT 04:57 PM EDT DISCLAIMER : THIS IS A VISIT SUMMARY EXTRACTED FROM THE [employer] CHART. IT IS NOT A COPY OF THE [employer] PROGRESS NOTE. LIGIA
== END ==
LOC: M PAIN 08:40
PROVIDERS: ATTEND Anesthesiology
DX: G89.29 Other chronic pain (principal); M54.2 Cervicalgia; M79.1 Myalgia; M25.552 Pain in left hip; M25.511 Pain in right shoulder; I10 Essential (primary) hypertension; E11.9 Type 2 diabetes mellitus without complications; G47.33 Obstructive sleep apnea (adult) (pediatric); K21.9 Gastro-esophageal reflux disease without esophagitis; E78.00 Pure hypercholesterolemia, unspecified; K76.0 Fatty (change of) liver, not elsewhere classified; G43.909 Migraine, unspecified, not intractable, without status migrainosus; K90.0 Celiac disease; Z88.6 Allergy status to analgesic agent; Z91.040 Latex allergy status; Z88.8 Allergy status to other drugs, medicaments and biological substances; Z79.899 Other long term (current) drug therapy
CPT/HCPCS: 20553; J3301

== ENCOUNTER → 2017-02-10 | Outpatient (CLI) | payer OTHER, MEDICAID ==
[~2017-02-10] MED LIST changes: -BUPIVACAINE HCL 0.25% 10 ML VIAL As Ordered ONE; -BUPIVACAINE HCL 0.25% 30 ML VIAL As Ordered ONE; -TRIAMCINOLONE ACETONIDE SUSP 40 MG/ML VIAL (J3301) As Ordered ONE; -ePHEDrine SULFATE 25 MG/5 ML(5MG/ML) SYRINGE As Ordered ONE
--- NOTE | 2017-02-11 00:03 | ECWPNPC ---
PATIENT NAME: PADILLA NGUYEN : 1960 GENDER: FEMALE VISIT DATE: 02/10/2017 DISCHARGE DATE: 02/10/17947 VISIT LOCKED DATE TIME: PHYSICIAN: JANET LOWERY RESOURCE: JANET LOWERY REASON FOR APPOINTMENT 1. POST TPI HISTORY OF PRESENT ILLNESS HISTORY OF PRESENT ILLNESS: 56 Y/O FEMALE HERE FOR POST PROCEDURE.HAD TPI ON 01-05-17.REPORTS MINIMAL IMPROVEMENT FOR SHORT TIME.COMPLAINING OF GENERALIZED JOINT PAIN.PREETI IN PAST HAS BEEN HELPFUL.CURRENTLY BEING EVALUATED FOR ABNORMAL LIVER FUNCTION STUDIES WITH PLANNED LIVER BIOPSY.RATING PAIN VAS 7/10.REPORTING CREPITUS AND ACHING MAINLY RIGHT NECK AND UPPER BACK.PAIN IS AGGREVATED BY USE OF ARMS OR ROJM NECK. PAIN THE PATIENT DESCRIBES THE PAIN... FALL RISK SCREENING: SCREENING :NO FALLS IN THE PAST YEAR CURRENT MEDICATIONS TAKING NEXIUM 40 MG CAPSULE DELAYED RELEASE 1 CAPSULE ORALLY ONCE A DAY TAKING LASIX 20 MG TABLET 1 TABLET ORALLY ONCE A DAY TAKING ZYRTEC ALLERGY 10 MG TABLET 1 TABLET ORALLY ONCE A DAY TAKING POTASSIUM CHLORIDE TYE ER 20 MEQ TABLET EXTENDED RELEASE 1 TABLET WITH FOOD ORALLY ONCE A DAY TAKING VITAMIN D 2000 UNIT TABLET 1 TABLET ORALLY ONCE A DAY TAKING CRESTOR 20 MG TABLET 1 TABLET ORALLY ONCE A DAY TAKING PHENTERMINE HCL 37.5 MG TABLET 1 TABLET ORALLY ONCE A DAY TAKING MOVANTIK 25 MG TABLET 1 TABLET IN THE MORNING ORALLY ONCE A DAY NOT-TAKING VICODIN 5-300 MG TABLET 1 TABLET NEEDED ORALLY EVERY 4 HRS NEEDED WHEN NOT ON OXYCODONE MEDICATION LIST REVIEWED AND RECONCILED WITH THE PATIENT PAST MEDICAL HISTORY HYPERTENSION DIABETES HEAD INJURY 35 YRS AGO LIGIA NO CPAP GERD CELIAC/COLITIS MIGRAINES HIGH CHOLESTEROL BETTENCOURT DISEASE (FATTY LIVER) BONE ON BONE IN BOTH THUMBS ALLERGIES ASPIRIN: SEVERE STOMACH: ALLERGY IBUPROFEN: SEVERE STOMACH: ALLERGY LATEX (FOR ALLERGY USE ONLY): HIVES: ALLERGY KETOROLAC TROMETHAMINE: RECTYAL BLEEDING: CONTRAINDICATION COLD: HIVES, RED, SWELLING: ALLERGY REVIEW OF SYSTEMS CONSTITUTIONAL: ANY CHANGE IN YOUR MEDICAL CONDITION? YES, INCREASED LFT&QUOT;S AND LIVER IS HARD . CHILLS NO . FEVER NO . INFECTION: DO YOU HAVE NEW INFECTIONS? NO . DO YOU HAVE HISTORY OF MRSA? NO . MUSCULOSKELETAL: ANY NEW PATTERNS OF PAIN OR NUMBNESS? NO . GASTROENTEROLOGY: ANY NEW CHANGE IN BOWEL CONTROL? NO . GENITOURINARY: ANY NEW CHANGE IN BLADDER CONTROL? NO . IS THERE A CHANCE YOU COULD BE ? NO . HEMATOLOGY/LYMPH: DO YOU TAKE ANY BLOOD THINNERS? (FOR EXAMPLE- COUMADIN, PLAVIX, AGGRENOX, PLATEL, PRADAXA, OR XARELTO) NO . WHEN WAS YOUR LAST DOSE? DATE: TIME: . NEUROLOGY: HAVE YOU FALLEN IN THE PAST 6 MONTHS? YES . ANY NEW EXTREMITY NUMBNESS OR WEAKNESS? NO . CARDIOLOGY: DO YOU HAVE A PACEMAKER OR DEFIBRILLATOR? NO . RESPIRATORY: HAVE YOU BEEN SICK IN THE PAST WEEK? NO . FEVER NO . FLU LIKE SYMPTOMS? NO . COUGH NO . INTEGUMENTARY: DO YOU HAVE ANY RASHES OR OPEN SORES? YES, REDNESS AND SWELLING OF FACE SINCE MOWING THE LAWN LAST NIGHT . ALLERGIC/IMMUNO: ARE YOU ALLERGIC TO SHELLFISH OR IV DYE? NO . ANY NEW ALLERGIES? NO . PSYCHIATRIC: DO YOU HAVE THOUGHTS OF HURTING YOURSELF OR SOMEONE ELSE? NO . ARE YOU ABUSED, NEGLECTED, OR IN AN UNSAFE ENVIRONMENT? NO . ENDOCRINOLOGY: ARE YOU DIABETIC? YES . OTHER: DO YOU NEED ANY PRESCRIPTIONS? NO . IF YES, PLEASE LIST: ____ . ANY NEW PROBLEMS WITH YOUR MEDICATIONS? NO . WHEN DID YOU LAST EAT? ____ . WHEN DID YOU LAST DRINK? ____ . WHAT DID YOU LAST DRINK? ____ . NAME OF PERSON DRIVING YOU HOME? ____ . DO YOU HAVE ANY OTHER QUESTIONS OR CONCERNS NO . REVIEWED BY: PROVIDER: JANET NAVARRO . VITAL SIGNS WT 178.4 LBS, HT 63", BMI 31.60 INDEX, BP 124/73 MM HG, HR 85 /MIN, RR 18 /MIN, TEMP 98.4 F, OXYGEN SAT % 96%, REVIEWED BY: CS (DONE AT 0907). EXAMINATION GENERAL EXAMINATION: GENERAL APPEARANCE:NO ACUTE DISTRESS. PSYCHAFFECT NORMAL, GOOD EYE CONTACT. LUNGS:LUNG LAKE ARE CLEAR TO AUSCULTATION BILATERALLY. GOOD MOVEMENT OF AIR. HEART:S1, S2 IN A REGULAR RATE AND RHYTHM. NO SIGNIFICANT MURMURS, RUBS OR GALLOPS NOTED. DIAGNOSTIC DATA-MRI [id number]-REVIEWED. CERVICAL SPINE/NECK: RANGE OF MOTION OF NECK:FULL WITH SOME DISCOMFORT. SENSATIONS:NORMAL BILATERALLY. VERTEBRAL SPINE TENDERNESS:POSITIVE OVER CERVICAL AXIS. TRAPEZIUS TENDERNESS:PRESENT ON RIGHT > LEFT SIDE. 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 PATIENT DOES NOT WANT ANY INFORMATION REGARDING PREETI SINCE SHE HAS HAD THIS IN THE PAST. PROCEDURE CODES FA211 ESTABILISHED PATIENT [facility] CHARGE DISPOSITION & COMMUNICATION FOLLOW UP 2WK POST (REASON: REQUEST PREETI ) ELECTRONICALLY SIGNED BY RAMON PURCELL ON 02/10/2017 AT 01:34 PM EDT DISCLAIMER : THIS IS A VISIT SUMMARY EXTRACTED FROM THE [employer] CHART. IT IS NOT A COPY OF THE [employer] PROGRESS NOTE. LIGIA
== END ==
LOC: M PAIN 08:40
PROVIDERS: ATTEND Nurse Practitioner Family
DX: G89.29 Other chronic pain (principal); M79.1 Myalgia; M43.02 Spondylolysis, cervical region; M50.20 Other cervical disc displacement, unspecified cervical region; I10 Essential (primary) hypertension; E11.9 Type 2 diabetes mellitus without complications; G47.33 Obstructive sleep apnea (adult) (pediatric); K21.9 Gastro-esophageal reflux disease without esophagitis; G43.909 Migraine, unspecified, not intractable, without status migrainosus; E78.00 Pure hypercholesterolemia, unspecified; K76.0 Fatty (change of) liver, not elsewhere classified; K52.9 Noninfective gastroenteritis and colitis, unspecified; K90.0 Celiac disease; Z88.6 Allergy status to analgesic agent; Z91.040 Latex allergy status; Z88.8 Allergy status to other drugs, medicaments and biological substances; Z79.899 Other long term (current) drug therapy

== ENCOUNTER → 2017-02-14 | Outpatient (CLI) | payer OTHER ==
[~2017-02-14] MED LIST changes: +LIDOCAINE 1% MDV 20ML VIAL As Ordered ONE
--- NOTE | 2017-02-14 14:59 | REP ---
ULTRASOUND GUIDED LIVER BIOPSY: The procedure was performed under the direct supervision of Dr. Nuñez. The risks and benefits of the procedure were explained to the patient and informed consent was obtained. The left lobe of the liver was localized using ultrasound guidance. The skin was prepped and draped in a sterile fashion. 1% xylocaine was used as a local anesthetic. Using ultrasound guidance a 19/20 gauge co-axial needle biopsy system was inserted and advanced into the liver. Five core biopsy samples were obtained and sent to the lab. The patient tolerated the procedure well and there were no immediate complications. After the appropriate amount of monitored convalescence the patient was discharged from the department. Reviewed by MERT Ashton 02/14/2017 05:08 PEdited and Signed by Sachin Nuñez MD 02/14/2017 05:18 P
== END | disposition home or self-care (01) ==
LOC: M RADPRO 08:31
PROVIDERS: ATTEND Internal Medicine Gastroenterology
DX: K75.81 Nonalcoholic steatohepatitis (NASH) (principal); K90.0 Celiac disease; K21.9 Gastro-esophageal reflux disease without esophagitis; E66.9 Obesity, unspecified; K62.5 Hemorrhage of anus and rectum; M19.90 Unspecified osteoarthritis, unspecified site; J45.909 Unspecified asthma, uncomplicated; R07.9 Chest pain, unspecified; G89.29 Other chronic pain; E11.9 Type 2 diabetes mellitus without complications; K44.9 Diaphragmatic hernia without obstruction or gangrene; E78.00 Pure hypercholesterolemia, unspecified; K58.9 Irritable bowel syndrome, unspecified; G47.30 Sleep apnea, unspecified; Z79.899 Other long term (current) drug therapy; Z88.8 Allergy status to other drugs, medicaments and biological substances; Z91.040 Latex allergy status; Z87.891 Personal history of nicotine dependence

== ENCOUNTER → 2018-02-20 | Outpatient (REF) | payer OTHER ==
[2018-02-20 16:45] LABS: BASO % 0.5 % (0.0-1.0); HEMATOCRIT 42.7 % (36.0-47.0); IMMATURE GRANULOCYTE % 0.3 % (0-3.0); LYMPH % 26.5 % (24.0-44.0); MEAN CORPUSCULAR HGB CONC 32.8 g/dl (32.0-36.5); MEAN CORPUSCULAR VOLUME 88.4 fl (80.0-96.0); MONO # 0.6 10^3/uL (0.0-0.8); MONO % 7.4 % (0.0-5.0); NEUTROPHILS # 4.8 10^3/uL (1.8-7.7); NEUTROPHILS % 65.3 % (36.0-66.0); PLATELET COUNT, AUTOMATED 249 10^3/uL (150-450); RED BLOOD COUNT 4.83 10^6/uL (4.00-5.40); WHITE BLOOD COUNT 7.4 10^3/uL (4.0-10.0)
[2018-02-20 16:57] LABS: C REACTIVE PROTEIN QUANTITATIV 0.47 MG/DL (0.00-0.30)
[2018-02-20 17:09] LABS: ERYTHROCYTE SEDIMENTATION RATE 30 mm/hr (0-30)
== END ==
LOC: M LABDRAW1 15:10
DX: Z47.89 Encounter for other orthopedic aftercare (principal)

== ENCOUNTER → 2018-07-10 | Outpatient (CLI) | payer OTHER, MEDICAID | LOC: M PAIN 15:00 | DX: M79.18 Myalgia, other site (principal); M43.02 Spondylolysis, cervical region; M50.20 Other cervical disc displacement, unspecified cervical region; E11.9 Type 2 diabetes mellitus without complications; I10 Essential (primary) hypertension; G47.33 Obstructive sleep apnea (adult) (pediatric); G43.909 Migraine, unspecified, not intractable, without status migrainosus; E78.00 Pure hypercholesterolemia, unspecified; L50.2 Urticaria due to cold and heat; Z79.899 Other long term (current) drug therapy; Z88.6 Allergy status to analgesic agent; Z88.8 Allergy status to other drugs, medicaments and biological substances; Z91.040 Latex allergy status; Z87.19 Personal history of other diseases of the digestive system; Z87.820 Personal history of traumatic brain injury | CPT/HCPCS: G0463 ==

== ENCOUNTER → 2018-08-24 | Outpatient (CLI) | payer OTHER, MEDICAID ==
[~2018-08-24] MED LIST changes: +ISOVUE-M 300 61% 15ML VIAL (Q9967) As Ordered ONE; -LIDOCAINE 1% MDV 20ML VIAL As Ordered ONE; +LIDOCAINE 1% SDV INJ 30 ML VIAL As Ordered ONE; +diazePAM 5 MG TAB As Ordered ONE; +methylPREDNISolone SUSP 40 MG/ML (DEPO-medrol) VIAL (J1030) As Ordered ONE; +oxyCODONE 5MG TAB As Ordered ONE
--- NOTE | 2018-08-24 14:08 | REP ---
Cervical spine series: Limited study two views: History: Injection procedure for pain. 9 seconds of fluoroscopy time is reported. Findings: A sequence of two last image hold fluoroscopically obtained spot radiographs of the cervicothoracic junction document needle position and contrast injection associated with cervical epidural injection procedure. Electronically Signed by Kirill Jones MD 08/24/2018 03:11 P
--- NOTE | 2018-09-10 23:46 | ECWPNPC ---
PATIENT NAME: PADILLA NGUYEN : 1960 GENDER: FEMALE VISIT DATE: 08/24/2018 DISCHARGE DATE: 08/24/18 1148 VISIT LOCKED DATE TIME: PHYSICIAN: XIOMARA ORDONEZ MD RESOURCE: XIOMARA ORDONEZ MD REASON FOR APPOINTMENT 1. PREETI HISTORY OF PRESENT ILLNESS HISTORY OF PRESENT ILLNESS: PAIN THE PATIENT DESCRIBES THE PAIN... FALL RISK SCREENING: SCREENING :NO FALLS IN THE PAST YEAR CURRENT MEDICATIONS TAKING OXYCODONE HCL 15 MG TABLET 1 TABLET ORALLY BEFORE BEDTIME, NOTES: WEEKS AGO TAKING TRULICITY 0.75 MG/0.5ML SOLUTION PEN-INJECTOR SUBCUTANEOUS WEEKLY, NOTES: 2 WEEKS AGO TAKING JANUVIA 25 MG TABLET ORALLY DAILY, NOTES: 08/23/18929 UNSURE OF DOSE TAKING NEXIUM 40 MG CAPSULE DELAYED RELEASE 1 CAPSULE ORALLY ONCE A DAY, NOTES: 744 TAKING LASIX 20 MG TABLET 1 TABLET ORALLY ONCE A DAY, NOTES: 744 TAKING ZYRTEC ALLERGY 10 MG TABLET 1 TABLET ORALLY ONCE A DAY, NOTES: 744 TAKING POTASSIUM CHLORIDE TYE ER 20 MEQ TABLET EXTENDED RELEASE 1 TABLET WITH FOOD ORALLY ONCE A DAY, NOTES: 744 TAKING VITAMIN D 2000 UNIT TABLET 1 TABLET ORALLY ONCE A DAY, NOTES: 08/23/18929 TAKING CRESTOR 20 MG TABLET 1 TABLET ORALLY ONCE A DAY, NOTES: 08/23/18929 TAKING PHENTERMINE HCL 37.5 MG TABLET 1 TABLET ORALLY ONCE A DAY, NOTES: 08/23/18929 TAKING MOVANTIK 25 MG TABLET 1 TABLET IN THE MORNING ORALLY ONCE A DAY, NOTES: 08/23/18929 NOT-TAKING VICODIN 5-300 MG TABLET 1 TABLET NEEDED ORALLY EVERY 4 HRS NEEDED WHEN NOT ON OXYCODONE MEDICATION LIST REVIEWED AND RECONCILED WITH THE PATIENT PAST MEDICAL HISTORY HYPERTENSION DIABETES HEAD INJURY 35 YRS AGO ILGIA NO CPAP GERD CELIAC/COLITIS MIGRAINES HIGH CHOLESTEROL BETTENCOURT DISEASE (FATTY LIVER) BONE ON BONE IN BOTH THUMBS ALLERGIES ASPIRIN: SEVERE STOMACH: ALLERGY IBUPROFEN: SEVERE STOMACH: ALLERGY LATEX (FOR ALLERGY USE ONLY): HIVES: ALLERGY KETOROLAC TROMETHAMINE: RECTYAL BLEEDING: CONTRAINDICATION COLD: HIVES, RED, SWELLING: ALLERGY SURGICAL HISTORY LEFT KNEE SURGERY 1982 RIGHT KNEE SURGERY 2002 GALLBLADDER ERCP D&C AND TUBALIGATION UTERINE ABLATION RIGHT SHOULDER- ROTATOR CUFF X2 RIGHT KNEE SURGERY 02/2018 FAMILY HISTORY FATHER: ALIVE, DIAGNOSED WITH OTHER MOTHER: ALIVE, DIAGNOSED WITH DIABETES, HEART DISEASE, OTHER SIBLINGS: ALIVE 2 BROTHER(S) , 3 SISTER(S) . 2 SON(S) - HEALTHY. SIBLINGS - LUPUS, RAFATHER - CHRON'S. SOCIAL HISTORY GENERAL: TOBACCO USE ARE YOU A:NONSMOKER RECREATIONAL DRUG USE DRUG USE?NO LEARNING BARRIERS / SPECIAL NEEDS ORIENTED TO PLAN OF CARE: PATIENT, PAIN MANAGEMENT PATIENT, ORIENTED TO PLAN OF CARE: PATIENT, PAIN MANAGEMENT PATIENT. NEW PATIENT PAIN DIARY TODAY'S VISITNOTES FROM 0-10, WHAT LEVEL IS YOUR PAIN TODAY?0 PAIN CLINIC PFS, CLERGY, PUBLIC HEALTH REFERRALS PFS REFERRAL NEEDED?NO CLERGY REFERRAL NEEDED?NO PUBLIC HEALTH REFERRAL NEEDED?NO WAS THE PROVIDER NOTIFIED OF ANY PERTINENT INFO?NO HAS THE PATIENT BEEN EDUCATED REGARDING HIS/HER PLAN OF CARE?YES HAS THE PATIENT BEEN EDUCATED REGARDING PAIN, THE RISK FOR PAIN, THE IMPORTANCE OF EFFECTIVE PAIN MANAGEMENT, AND THE PAIN ASSESSMENT PROCESS?YES ADVANCE DIRECTIVE ADVANCE DIRECTIVE DISCUSSED WITH PATIENT:YES POA - KEILA YOUNG (SON) REVIEWED WITH PATIENT 07/10/18 1529 JSREVIEWED WITH PATIENT 0930 JS. HOSPITALIZATION/MAJOR DIAGNOSTIC PROCEDURE NO HOSPITALIZATION HISTORY. REVIEW OF SYSTEMS REVIEWED BY: PROVIDER: . CONSTITUTIONAL: ANY CHANGE IN YOUR MEDICAL CONDITION? NO . CHILLS NO . FEVER NO . INFECTION: DO YOU HAVE NEW INFECTIONS? NO . DO YOU HAVE HISTORY OF MRSA? NO . MUSCULOSKELETAL: ANY NEW PATTERNS OF PAIN OR NUMBNESS? YES, STATES PAIN AND NUMBNESS HAVE RETURNED TO LEFT ARM . GASTROENTEROLOGY: ANY NEW CHANGE IN BOWEL CONTROL? NO . GENITOURINARY: ANY NEW CHANGE IN BLADDER CONTROL? NO . IS THERE A CHANCE YOU COULD BE ? NO . HEMATOLOGY/LYMPH: DO YOU TAKE ANY BLOOD THINNERS? (FOR EXAMPLE- COUMADIN, PLAVIX, AGGRENOX, PLATEL, PRADAXA, OR XARELTO) NO . WHEN WAS YOUR LAST DOSE? DATE: TIME: . NEUROLOGY: HAVE YOU FALLEN IN THE PAST 6 MONTHS? YES, STATES FALL PRIOR TO LAST VISIT, DISCUSSED AT LAST VISIT . ANY NEW EXTREMITY NUMBNESS OR WEAKNESS? YES, STATES WEAKNESS TO LEFT ARM . CARDIOLOGY: DO YOU HAVE A PACEMAKER OR DEFIBRILLATOR? NO . RESPIRATORY: HAVE YOU BEEN SICK IN THE PAST WEEK? NO . FEVER NO . FLU LIKE SYMPTOMS? NO . COUGH NO . INTEGUMENTARY: DO YOU HAVE ANY RASHES OR OPEN SORES? NO . ALLERGIC/IMMUNO: ARE YOU ALLERGIC TO SHELLFISH OR IV DYE? NO . ANY NEW ALLERGIES? NO . PSYCHIATRIC: DO YOU HAVE THOUGHTS OF HURTING YOURSELF OR SOMEONE ELSE? NO . ARE YOU ABUSED, NEGLECTED, OR IN AN UNSAFE ENVIRONMENT? NO . ENDOCRINOLOGY: ARE YOU DIABETIC? YES . OTHER: DO YOU NEED ANY PRESCRIPTIONS? NO . IF YES, PLEASE LIST: ____ . ANY NEW PROBLEMS WITH YOUR MEDICATIONS? NO . WHEN DID YOU LAST EAT? ____08/23/181999 . WHEN DID YOU LAST DRINK? ____08/24/18 0745 . WHAT DID YOU LAST DRINK? ____WATER . NAME OF PERSON DRIVING YOU HOME? ____BONNIE YOUNG () . DO YOU HAVE ANY OTHER QUESTIONS OR CONCERNS NO . VITAL SIGNS WT 175.8 LBS, HT 63", BMI 31.14 INDEX, BP 132/79 MM HG, HR 84 /MIN, RR 16 /MIN, TEMP 96.7 F, OXYGEN SAT % 94%, BLOOD GLUCOSE LEVEL 107 THIS AM, SAFE IN ENV? (Y/N) YES, NA INITIALS PR 08:59, REVIEWED BY: CHARANJIT. ASSESSMENTS CERVICAL DISC DISORDER WITH RADICULOPATHY OF CERVICAL REGION - M50.10 (PRIMARY) PROCEDURES PN CERVICAL EPIDURAL PRE PROCEDURE DIAGNOSIS CERVICAL DISC DISORDER WITH RADICULOPATHY POST PROCEDURE DIAGNOSIS CERVICAL DISC DISORDER WITH RADICULOPATHY PROCEDURE CERVICAL EPIDURAL STEROID INJECTION UNDER FLUOROSCOPIC GUIDANCE SURGEON DR. XIOMARA ORDONEZ OCCUPATIONAL THERAPY ASSISTANT NONE ANESTHESIA LOCAL PRE PROCEDURE NOTE THE PATIENT HAS A HISTORY OF CHRONIC CERVICAL PAIN. I EVALUATE THE PATIENT AND REVIEWED THE CHART. I WENT OVER THE RISKS, ALTERNATIVES, AND BENEFITS ASSOCIATED WITH THIS PROCEDURE. THE PATIENT WOULD LIKE TO PROCEED AND GIVE CONSENT TO PERFORMED THE PROCEDURE. THE PATIENT DENIES UNEXPLAINABLE WEIGHT LOSS, FEVER, CHILLS, OR NEW CHANGES IN URINARY OR BOWEL CONTROL DESCRIPTION OF PROCEDURE THE PATIENT WAS BROUGHT TO THE PROCEDURE ROOM AND PLACED IN THE PRONE POSITION. THE CERVICOTHORACIC AREA WAS CLEANED WITH BETADINE SOLUTION AND DRAPED ASEPTICALLY. THE PROCEDURE WAS DONE UNDER STERILE CONDITIONS. I CHECKED LATERALITY AND THE LEVEL WHERE THE PROCEDURE WAS GOING TO BE PERFORMED WITH THE PATIENT AND THE SUPPORTING STAFF AT THE MOMENT OF THE TIME OUT IN THE PROCEDURE ROOM. UNDER FLUOROSCOPIC GUIDANCE, THE TARGET WAS SELECTED AT THE INTERLAMINAR LEVEL OF C7-T1. LIDOCAINE WAS USED TO NUMB THE SKIN AND THE SUBCUTANEOUS TISSUE BELOW IT. EPIDURAL TUOHY NEEDLE 17-GAUGE WAS ADVANCED UNDER FLUOROSCOPIC GUIDANCE AND FOLLOWING PATIENT FEEDBACK UNTIL THE EPIDURAL SPACE WAS REACHED 6 CM DEEP INTO THE SKIN BY THE LOSS OF RESISTANCE TECHNIQUE. ISOVUE M DYE 30%, 0.25 ML, WAS INJECTED SHOWING ADEQUATE SPREAD OF THE DYE. THEN, A SOLUTION OF 3 ML OF NORMAL SALINE WITH DEPO-MEDROL 60 MG WAS INJECTED SLOWLY FOLLOWING PATIENT FEEDBACK. THERE WAS NO EVIDENCE OF BLOOD, PARESTHESIA OR CEREBROSPINAL FLUID DURING THE PROCEDURE. THE PATIENT WAS SENT TO THE RECOVERY ROOM. THE PATIENT WAS MOVING THE EXTREMITIES AND DOING WELL. THERE WAS NO COMPLICATION DURING THE PROCEDURE. FLUOROSCOPY TIME WAS 9 SECONDS POST PROCEDURE NOTE THE PATIENT WILL BE SEEN IN A FOLLOW UP IN THE NEXT FEW WEEKS. INSTRUCTIONS WERE GIVEN, QUESTIONS WERE ANSWERED, AND THE PATIENT EXPRESSED UNDERSTANDING AND AGREES WITH THE PLAN. I, BAILEE CHURCH, DOCUMENTED THE ABOVE INFORMATION ACTING A SCRIBE FOR DR. ORDONEZ. I HAVE REVIEWED THE ABOVE DOCUMENT, WRITTEN BY BAILEE CORTEZ AND I VERIFY THAT IT IS ACCURATE. DIAGNOSTIC IMAGING [facility] FLUORO GUIDE SPINE INJECTION (PAIN)[id number] PROCEDURE CODES 6045F RADXPS IN END [id number] PXD [id number] CERVICAL/THORACIC W/ IMAGING DISPOSITION & COMMUNICATION FOLLOW UP 3 WEEKS ELECTRONICALLY SIGNED BY XIOMARA ORDONEZ MD, MD ON 09/10/2018 AT 02:26 PM EST DISCLAIMER : THIS IS A VISIT SUMMARY EXTRACTED FROM THE [employer] CHART. IT IS NOT A COPY OF THE [employer] PROGRESS NOTE. MTDD
== END ==
LOC: M PAIN 08:45
PROVIDERS: ATTEND Anesthesiology
DX: G89.29 Other chronic pain (principal); M50.10 Cervical disc disorder with radiculopathy, unspecified cervical region; I10 Essential (primary) hypertension; E11.9 Type 2 diabetes mellitus without complications; G47.33 Obstructive sleep apnea (adult) (pediatric); G43.909 Migraine, unspecified, not intractable, without status migrainosus; E78.00 Pure hypercholesterolemia, unspecified; Z79.899 Other long term (current) drug therapy; Z88.6 Allergy status to analgesic agent; Z88.8 Allergy status to other drugs, medicaments and biological substances; Z91.09 Other allergy status, other than to drugs and biological substances; Z91.040 Latex allergy status; Z87.820 Personal history of traumatic brain injury; Z87.19 Personal history of other diseases of the digestive system
CPT/HCPCS: 62321; J1030; Q9967

== ENCOUNTER → 2018-11-08 | Outpatient (CLI) | payer OTHER ==
[~2018-11-08] MED LIST changes: -ISOVUE-M 300 61% 15ML VIAL (Q9967) As Ordered ONE; -LIDOCAINE 1% SDV INJ 30 ML VIAL As Ordered ONE; -diazePAM 5 MG TAB As Ordered ONE; -methylPREDNISolone SUSP 40 MG/ML (DEPO-medrol) VIAL (J1030) As Ordered ONE; -oxyCODONE 5MG TAB As Ordered ONE
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
== END ==
LOC: M PAIN 14:30
PROVIDERS: ATTEND Nurse Practitioner Family
DX: M43.02 Spondylolysis, cervical region (principal); M50.20 Other cervical disc displacement, unspecified cervical region; I10 Essential (primary) hypertension; E11.9 Type 2 diabetes mellitus without complications; G47.33 Obstructive sleep apnea (adult) (pediatric); K21.9 Gastro-esophageal reflux disease without esophagitis; G43.909 Migraine, unspecified, not intractable, without status migrainosus; E78.00 Pure hypercholesterolemia, unspecified; K76.0 Fatty (change of) liver, not elsewhere classified; L50.2 Urticaria due to cold and heat; Z79.899 Other long term (current) drug therapy; Z88.1 Allergy status to other antibiotic agents; Z88.5 Allergy status to narcotic agent; Z88.6 Allergy status to analgesic agent; Z88.8 Allergy status to other drugs, medicaments and biological substances; Z91.018 Allergy to other foods; Z91.040 Latex allergy status; Z87.891 Personal history of nicotine dependence

== ENCOUNTER → 2019-02-08 | Outpatient (CLI) | payer OTHER ==
[~2019-02-08] MED LIST changes: -/ESOM40CA PO; +NEXI1CAP3 PO
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
== END ==
LOC: M PAIN 13:30
PROVIDERS: ATTEND Nurse Practitioner Family
DX: M50.20 Other cervical disc displacement, unspecified cervical region (principal); Z79.899 Other long term (current) drug therapy; Z87.891 Personal history of nicotine dependence; Z88.8 Allergy status to other drugs, medicaments and biological substances; Z88.5 Allergy status to narcotic agent; Z91.040 Latex allergy status; Z91.018 Allergy to other foods

== ENCOUNTER → 2019-08-03 | Outpatient (CLI) | payer OTHER ==
[2019-08-03 17:00] LABS: CALCIUM LEVEL 8.8 MG/DL (8.5-10.1); CREATININE FOR GFR 1.15 MG/DL (0.55-1.30); GLOMERULAR FILTRATION RATE 51.6 (>51); POTASSIUM SERUM 3.9 MEQ/L (3.5-5.1)
--- NOTE | 2019-08-04 01:02 | ECGEPIP ---
[facility] Test Date: 2019-08-03 Pat Name: PADILLA NGUYEN Department: Room: - Gender: Female Special Assets Officer: : 1960 Requested By: Dariusz Pina PA-C Order Number: [id number] Reading MD: Brock Sharma Measurements Intervals [place] Rate: 72 P: 21 WY: 182 QRS: 43 QRSD: 93 T: 10 QT: 364 QTc: 400 Interpretive Statements SINUS RHYTHM NO PRIOR TRACING IN THE SYSTEM Electronically Signed on 08-04-2019 1:01:46 EST by Brock Sharma
== END ==
LOC: M LAB 15:36
DX: Z79.899 Other long term (current) drug therapy (principal)

== ENCOUNTER → 2020-02-15 | Outpatient (REF) | payer OTHER ==
[2020-02-15 16:12] LABS: CREATININE, URINE < 13.0 MG/DL; MALB URINE SIEMENS < 5.0 MG/L
== END ==
LOC: M LAB REF 15:00
PROVIDERS: ATTEND Nurse Practitioner Family
DX: E11.65 Type 2 diabetes mellitus with hyperglycemia (principal)

== ENCOUNTER → 2020-07-10 | Outpatient (CLI) | payer OTHER ==
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
== END ==
LOC: M PAIN 10:15
PROVIDERS: ATTEND Nurse Practitioner Family
DX: M43.02 Spondylolysis, cervical region (principal); M50.20 Other cervical disc displacement, unspecified cervical region; M79.11 Myalgia of mastication muscle; I10 Essential (primary) hypertension; E11.9 Type 2 diabetes mellitus without complications; G47.33 Obstructive sleep apnea (adult) (pediatric); E78.00 Pure hypercholesterolemia, unspecified; Z87.891 Personal history of nicotine dependence; Z79.84 Long term (current) use of oral hypoglycemic drugs; Z79.899 Other long term (current) drug therapy; Z88.6 Allergy status to analgesic agent; Z88.5 Allergy status to narcotic agent; Z88.1 Allergy status to other antibiotic agents; Z88.8 Allergy status to other drugs, medicaments and biological substances; Z91.018 Allergy to other foods

== ENCOUNTER → 2020-08-26 | Outpatient (CLI) | payer OTHER ==
[~2020-08-26] MED LIST changes: +ISOVUE-300 61% 50ML VIAL As Ordered ONE; +LIDOCAINE 1% MDV 20ML VIAL As Ordered ONE
--- NOTE | 2020-08-26 11:25 | REP ---
INDICATION: LEFT HIP PAIN, BURSITIS. COMPARISON: None. TECHNIQUE: Axial CT images are performed of the left hip following arthrogram procedure. Sagittal and coronal reconstruction images are performed. FINDINGS: There is no evidence of acute fracture or dislocation. There are findings compatible with fraying and partial tearing at the anterior superior corner of the labrum. 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 There is mild diffuse chondromalacia at the hip joint. There is mild acetabular spurring. There is mild subchondral cystic change in the superior acetabulum anteriorly. No definite joint bodies are seen. There are mild tendinous calcifications along the greater trochanter of the proximal left femur. There are also mild tendinous calcifications in the left common hamstring tendon. Otherwise the soft tissues surrounding the left hip are grossly unremarkable. Within the pelvis note is made of multiple diverticula of the sigmoid colon without evidence of acute diverticulitis. IMPRESSION: Fraying and partial tearing at the anterior superior corner of the labrum. 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 Mild arthritic changes of the left hip as discussed above. Mild diffuse chondromalacia. Mild tendinous calcifications along the greater trochanter of the proximal left femur and in the left common hamstring tendon. <Electronically signed by Sachin Nuñez > 08/26/20 [id number]
--- NOTE | 2020-08-26 16:53 | REP ---
INDICATION: LEFT HIP PAIN, BURSITIS. COMPARISON: None TECHNIQUE: The procedure was performed by MERT Tovar, under the direct supervision of Dr. Nuñez. The benefits and risks of the procedure were explained to the patient, and an informed consent was obtained. Directly prior to the start of the procedure, a formal time-out was completed in the procedure room. The left femoral neck joint space was localized using fluoroscopic guidance. The skin was prepped and draped in a sterile fashion. Approximately 5 mL of 1% Lidocaine 10 mg/ml was used as a local anesthetic. Using fluoroscopic guidance, a #22 gauge spinal needle was inserted and advanced into the left femoral neck joint space. Approximately 12 mL of Isovue 300 was injected to verify placement and for postprocedural imaging. The needle was removed and the patient was taken to CT for post procedural imaging. FINDINGS: The patient tolerated the procedure well and there were no immediate complications. IMPRESSION: Fluoroscopic guided left femoral neck arthrogram.. 0.1 minutes of fluoroscopy time was utilized for this procedure. Some fluoroscopic images are performed with last image hold technology. These images require no additional radiation. <Electronically signed by Lorraine Delgado > 08/26/20 1017 <Electronically signed by Sachin Nuñez > 08/26/20 [id number]
== END ==
LOC: M RADPRO 08:38
PROVIDERS: ATTEND Physician Assistant
DX: M70.62 Trochanteric bursitis, left hip (principal); M24.859 Other specific joint derangements of unspecified hip, not elsewhere classified; M16.12 Unilateral primary osteoarthritis, left hip; Z88.1 Allergy status to other antibiotic agents; Z88.5 Allergy status to narcotic agent; Z88.6 Allergy status to analgesic agent; Z88.8 Allergy status to other drugs, medicaments and biological substances; Z91.018 Allergy to other foods
CPT/HCPCS: 27093; 73701; 77002; Q9967

== ENCOUNTER → 2020-11-13 | Outpatient (CLI) | payer OTHER ==
[~2020-11-13] MED LIST changes: -ISOVUE-300 61% 50ML VIAL As Ordered ONE; -LIDOCAINE 1% MDV 20ML VIAL As Ordered ONE
== END ==
LOC: M LABSMTC 11:29
PROVIDERS: ATTEND Anesthesiology
DX: Z01.812 Encounter for preprocedural laboratory examination (principal); Z20.822 Contact with and (suspected) exposure to COVID-19

== ENCOUNTER → 2020-11-18 | Outpatient (CLI) | payer OTHER ==
[~2020-11-18] MED LIST changes: +ISOVUE-M 300 61% 15ML VIAL As Ordered ONE; +LIDOCAINE 1% SDV 30ML VIAL As Ordered ONE; +diazePAM 5MG TABLET As Ordered ONE; +methylPREDNISolone SUSP 40MG/ML 1ML VIAL (DEPO MEDROL) As Ordered ONE; +oxyCODONE 5MG TAB As Ordered ONE
--- NOTE | 2020-11-18 10:33 | REP ---
INDICATION: CERVICAL EPIDURAL. COMPARISON: None. TECHNIQUE: Three views. 25.2 seconds of fluoroscopy time is reported. FINDINGS: A sequence of 3 last image hold fluoroscopically obtained spot radiograph(s) of the cervical spine document(s) needle position(s) and contrast injection associated with injection procedure. IMPRESSION: Procedural imaging. <Electronically signed by Félix Jones > 11/18/20 1027
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
== END ==
LOC: M PAIN 08:30
PROVIDERS: ATTEND Anesthesiology
DX: M50.10 Cervical disc disorder with radiculopathy, unspecified cervical region (principal); I10 Essential (primary) hypertension; E11.9 Type 2 diabetes mellitus without complications; G47.33 Obstructive sleep apnea (adult) (pediatric); K21.9 Gastro-esophageal reflux disease without esophagitis; K90.0 Celiac disease; G43.909 Migraine, unspecified, not intractable, without status migrainosus; E78.00 Pure hypercholesterolemia, unspecified; K75.81 Nonalcoholic steatohepatitis (NASH); M79.7 Fibromyalgia; Z87.891 Personal history of nicotine dependence; Z79.891 Long term (current) use of opiate analgesic; Z79.899 Other long term (current) drug therapy; Z88.6 Allergy status to analgesic agent; Z88.0 Allergy status to penicillin; Z88.5 Allergy status to narcotic agent; Z91.018 Allergy to other foods
CPT/HCPCS: 62321; J1030; Q9967

== ENCOUNTER → 2020-12-05 | Outpatient (CLI) | payer OTHER ==
[~2020-12-05] MED LIST changes: -ISOVUE-M 300 61% 15ML VIAL As Ordered ONE; -LIDOCAINE 1% SDV 30ML VIAL As Ordered ONE; -diazePAM 5MG TABLET As Ordered ONE; -methylPREDNISolone SUSP 40MG/ML 1ML VIAL (DEPO MEDROL) As Ordered ONE; -oxyCODONE 5MG TAB As Ordered ONE
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
== END ==
LOC: M PAIN 11:00
PROVIDERS: ATTEND Nurse Practitioner Family
DX: G89.29 Other chronic pain (principal); M50.10 Cervical disc disorder with radiculopathy, unspecified cervical region; I10 Essential (primary) hypertension; E11.9 Type 2 diabetes mellitus without complications; G47.33 Obstructive sleep apnea (adult) (pediatric); K21.9 Gastro-esophageal reflux disease without esophagitis; G43.909 Migraine, unspecified, not intractable, without status migrainosus; E78.00 Pure hypercholesterolemia, unspecified; K75.81 Nonalcoholic steatohepatitis (NASH); M79.7 Fibromyalgia; K90.0 Celiac disease; Z87.891 Personal history of nicotine dependence; Z79.891 Long term (current) use of opiate analgesic; Z79.899 Other long term (current) drug therapy; Z88.0 Allergy status to penicillin; Z88.6 Allergy status to analgesic agent; Z88.5 Allergy status to narcotic agent; Z88.8 Allergy status to other drugs, medicaments and biological substances; Z91.018 Allergy to other foods

== ENCOUNTER → 2022-02-02 | Outpatient (CLI) | payer OTHER | LOC: M WHC 14:26 | PROVIDERS: ATTEND Obstetrics & Gynecology Obstetrics | DX: Z13.820 Encounter for screening for osteoporosis (principal) ==

== ENCOUNTER → 2023-03-24 | Outpatient (REF) | payer OTHER | LOC: M LAB REF 13:23 | PROVIDERS: ATTEND Ophthalmology | DX: H02.831 Dermatochalasis of right upper eyelid (principal); H02.834 Dermatochalasis of left upper eyelid; H02.821 Cysts of right upper eyelid ==

== ENCOUNTER → 2023-10-24 | Outpatient (CLI) | payer OTHER | LOC: M PAIN 13:00 | PROVIDERS: ATTEND Nurse Practitioner Family | DX: M50.10 Cervical disc disorder with radiculopathy, unspecified cervical region (principal); G89.29 Other chronic pain; I10 Essential (primary) hypertension; E11.9 Type 2 diabetes mellitus without complications; G47.33 Obstructive sleep apnea (adult) (pediatric); K21.9 Gastro-esophageal reflux disease without esophagitis; K90.0 Celiac disease; G43.909 Migraine, unspecified, not intractable, without status migrainosus; E78.00 Pure hypercholesterolemia, unspecified; K76.0 Fatty (change of) liver, not elsewhere classified; M79.7 Fibromyalgia; Z87.891 Personal history of nicotine dependence; Z79.84 Long term (current) use of oral hypoglycemic drugs; Z79.891 Long term (current) use of opiate analgesic; Z79.899 Other long term (current) drug therapy; Z88.6 Allergy status to analgesic agent; Z88.1 Allergy status to other antibiotic agents; Z88.5 Allergy status to narcotic agent; Z88.8 Allergy status to other drugs, medicaments and biological substances ==

== ENCOUNTER → 2024-02-06 | Outpatient (CLI) | payer OTHER | LOC: M PAIN 14:30 | PROVIDERS: ATTEND Nurse Practitioner Family | DX: M50.10 Cervical disc disorder with radiculopathy, unspecified cervical region (principal); G89.29 Other chronic pain; I10 Essential (primary) hypertension; E11.9 Type 2 diabetes mellitus without complications; G47.33 Obstructive sleep apnea (adult) (pediatric); K21.9 Gastro-esophageal reflux disease without esophagitis; K90.0 Celiac disease; G43.909 Migraine, unspecified, not intractable, without status migrainosus; E78.00 Pure hypercholesterolemia, unspecified; K75.81 Nonalcoholic steatohepatitis (NASH); M79.7 Fibromyalgia; M15.9 Polyosteoarthritis, unspecified; Z87.891 Personal history of nicotine dependence; Z79.84 Long term (current) use of oral hypoglycemic drugs; Z79.891 Long term (current) use of opiate analgesic; Z79.899 Other long term (current) drug therapy; Z88.5 Allergy status to narcotic agent; Z88.6 Allergy status to analgesic agent; Z88.8 Allergy status to other drugs, medicaments and biological substances; Z91.040 Latex allergy status; Z88.1 Allergy status to other antibiotic agents; Z91.018 Allergy to other foods ==

== ENCOUNTER → 2024-06-11 | Outpatient (CLI) | payer OTHER | LOC: M PAIN 16:00 | PROVIDERS: ATTEND Nurse Practitioner Family | DX: M79.18 Myalgia, other site (principal); I10 Essential (primary) hypertension; E11.9 Type 2 diabetes mellitus without complications; G47.33 Obstructive sleep apnea (adult) (pediatric); K21.9 Gastro-esophageal reflux disease without esophagitis; K90.0 Celiac disease; G43.909 Migraine, unspecified, not intractable, without status migrainosus; K75.81 Nonalcoholic steatohepatitis (NASH); Z87.891 Personal history of nicotine dependence; Z79.891 Long term (current) use of opiate analgesic; Z79.899 Other long term (current) drug therapy ==

== ENCOUNTER → 2024-08-09 | Outpatient (CLI) | payer OTHER ==
[~2024-08-09] MED LIST changes: +TRIAMCINOLONE ACETONIDE SUSP 40MG/ML 1ML VIAL As Ordered ONE; +diazePAM 5MG TABLET As Ordered ONE; +oxyCODONE 5MG TAB As Ordered ONE
== END ==
LOC: M PAIN 16:30
PROVIDERS: ATTEND Anesthesiology
DX: M79.18 Myalgia, other site (principal); G89.29 Other chronic pain; M54.2 Cervicalgia; M54.50 Low back pain, unspecified; I10 Essential (primary) hypertension; E11.9 Type 2 diabetes mellitus without complications; G47.33 Obstructive sleep apnea (adult) (pediatric); K21.9 Gastro-esophageal reflux disease without esophagitis; K90.0 Celiac disease; G43.909 Migraine, unspecified, not intractable, without status migrainosus; E78.00 Pure hypercholesterolemia, unspecified; M15.9 Polyosteoarthritis, unspecified; Z87.891 Personal history of nicotine dependence; Z79.891 Long term (current) use of opiate analgesic; Z79.899 Other long term (current) drug therapy; Z88.6 Allergy status to analgesic agent; Z88.5 Allergy status to narcotic agent; Z88.1 Allergy status to other antibiotic agents; Z88.8 Allergy status to other drugs, medicaments and biological substances; Z91.018 Allergy to other foods
CPT/HCPCS: 20552; J0665; J3301

== ENCOUNTER → 2024-08-14 | Outpatient (CLI) | payer OTHER ==
[~2024-08-14] MED LIST changes: -TRIAMCINOLONE ACETONIDE SUSP 40MG/ML 1ML VIAL As Ordered ONE; -diazePAM 5MG TABLET As Ordered ONE; -oxyCODONE 5MG TAB As Ordered ONE
== END ==
LOC: M PAIN 10:30
PROVIDERS: ATTEND Anesthesiology
DX: M54.2 Cervicalgia (principal); M79.10 Myalgia, unspecified site; M79.18 Myalgia, other site; I10 Essential (primary) hypertension; E11.9 Type 2 diabetes mellitus without complications; G47.33 Obstructive sleep apnea (adult) (pediatric); K21.9 Gastro-esophageal reflux disease without esophagitis; K90.0 Celiac disease; G43.909 Migraine, unspecified, not intractable, without status migrainosus; E78.00 Pure hypercholesterolemia, unspecified; Z87.891 Personal history of nicotine dependence; Z79.891 Long term (current) use of opiate analgesic; Z79.899 Other long term (current) drug therapy; Z88.5 Allergy status to narcotic agent; Z88.6 Allergy status to analgesic agent; Z88.1 Allergy status to other antibiotic agents; Z88.8 Allergy status to other drugs, medicaments and biological substances; Z91.018 Allergy to other foods

== ENCOUNTER → 2024-10-09 | Outpatient (CLI) | payer OTHER ==
[~2024-10-09] MED LIST changes: +TRIAMCINOLONE ACETONIDE SUSP 40MG/ML 1ML VIAL As Ordered ONE; +diazePAM 5MG TABLET As Ordered ONE; +oxyCODONE 5MG TAB As Ordered ONE
== END ==
LOC: M PAIN 12:30
PROVIDERS: ATTEND Anesthesiology
DX: M79.18 Myalgia, other site (principal); M54.2 Cervicalgia; G89.29 Other chronic pain; I10 Essential (primary) hypertension; E11.9 Type 2 diabetes mellitus without complications; K21.9 Gastro-esophageal reflux disease without esophagitis; E78.00 Pure hypercholesterolemia, unspecified; Z87.891 Personal history of nicotine dependence; Z79.891 Long term (current) use of opiate analgesic; Z79.899 Other long term (current) drug therapy; Z88.6 Allergy status to analgesic agent; Z88.5 Allergy status to narcotic agent; Z88.1 Allergy status to other antibiotic agents; Z88.8 Allergy status to other drugs, medicaments and biological substances; Z91.018 Allergy to other foods
CPT/HCPCS: 20553; J0665; J3301

== ENCOUNTER → 2024-10-23 | Outpatient (CLI) | payer OTHER ==
[~2024-10-23] MED LIST changes: -TRIAMCINOLONE ACETONIDE SUSP 40MG/ML 1ML VIAL As Ordered ONE; -diazePAM 5MG TABLET As Ordered ONE; -oxyCODONE 5MG TAB As Ordered ONE
== END ==
LOC: M PAIN 14:45
PROVIDERS: ATTEND Nurse Practitioner Family
DX: M54.2 Cervicalgia (principal); M79.18 Myalgia, other site; G89.29 Other chronic pain; Z79.891 Long term (current) use of opiate analgesic; Z79.899 Other long term (current) drug therapy; I10 Essential (primary) hypertension; E11.9 Type 2 diabetes mellitus without complications; Z87.891 Personal history of nicotine dependence; Z88.6 Allergy status to analgesic agent; Z88.5 Allergy status to narcotic agent; Z88.8 Allergy status to other drugs, medicaments and biological substances; Z91.018 Allergy to other foods; Z91.040 Latex allergy status